=== PATIENT | male | born 1980 | race Caucasian/White ===

== ENCOUNTER 2019-04-15 16:32 | Emergency (ER) | payer OTHER, SELFPAY ==
[2019-04-15 16:33] VITALS: BP 119/81; PULSE 97; RESP 17; TEMP 36.8; O2SAT 98; BMI 25.4
[2019-04-15 16:42] VITALS: BP 147/91; PULSE 82; RESP 16; O2SAT 99
--- NOTE | 2019-04-15 17:13 | ED.VISSUMM ---
- ER Visit Summary Date of Service: 04/15/19 Chief Complaint: Dizziness meaning lightheaded History of Present Illness: The patient is a 38 M status post right knee surgery about [address]Dan Corley from [facility]. Patient states his been doing well he has been down a lot laying and sitting down due to the discomfort. He has had no chest pain. No shortness of breath. No hemoptysis. Really no calf pain or swelling. No prior DVT or PE. He got up today to do physical therapy just felt lightheaded so they sent him in. They told he may need to be checked out for a possible blood clot. Physical Examination: Well-appearing young male. Vital signs are stable afebrile. Pulse ox 99% on room air no signs of hypoxia. H EENT exam normal. Moist wheeze members. Neck nontender no JVD. No lymphadenopathy. Lungs clear to auscultation bilaterally laterally. Heart rate and rhythm no murmur rate about 80. Abdomen soft nontender normal bowel sounds no peritoneal signs. Extremities moves all 4. Neurovascular intact. Both calves are nontender without edema or cords. Is a very well healing incision top of his patella that is dry and clean without signs of infection. There is no redness or warmth. Neurologically is awake alert with no focal motor or sensory deficits. Equal symmetrical technical developer strength. Dorsi plantarflexion intact. Test Results: CBC normal white count of 7. Hemoglobin 15. Chemistries normal. D-dimer was elevated 0.86. For that reason a CT of the chest was done and was read as negative by the radiologist. Reviewed by me. No PE. No dissection. Emergency Department Course and Treatment: Clinically the patient looks well. This is probably from deconditioning. I will obtain screening labs. Repeat exam patient is doing well 1800 and 1910. We went over all his test results. Treatment Plan: Plenty of fluids and rest. Increase activity as tolerated. Disposition: Discharge chest Impression: Acute lightheadedness Status post right knee surgery This note was generated with [employer] dictation software. It may contain incorrect words, spelling, and punctuation that were not noted in review of the chart prior to signing ED Disposition - Plan for ED Patient: Referrals: Samantha Najera MD [Primary Care Provider] -
[2019-04-15 17:29] LABS: Absolute Lymphocyte Count 1.06 X10^3/uL (0.83-4.51); Absolute Neutrophil Count 5.8 X10^3/uL (2.0-7.7); Basophil# 0.01 X10^3/uL; Basophil% 0.1 % (0-1); Eosinophil# 0.03 X10^3/uL; Eosinophils% 0.4 % (0-5); Hematocrit 42.7 % (40-54); Hemoglobin 15.3 g/dL (13.0-16.5); Lymphocyte # 1.06 X10^3/ul (4.0); Lymphocyte % 14.5 % (19-41); Mean Corp Hgb Conc 35.8 g/dL (32-36); Mean Corpuscular Hgb 31.7 pg (27.0-32.0); Mean Corpuscular Volume 88.4 fL (80-94); Mean Platelet Vol. 9.8 fl (6.2-12.0); Monocyte# 0.37 X10^3/uL; Monocyte% 5.1 % (0-10); NRBC Flagged by Analyzer 0 % (0-5); Neutrophil # 5.82 X10^3/uL (2.7-7.7); Neutrophil % 79.5 % (47-70); Platelet Count 242 K/mm3 (150-450); RBC Distribution Width CV 11.4 % (11.6-14.6); RBC Distribution Width SD 36.2 fl (35.1-43.9); Red Blood Count 4.83 M/mm3 (4.6-6.2); White Blood Count 7.3 K/mm3 (4.4-11.0)
[2019-04-15 17:35] LABS: Anion Gap 5 (5-15); BUN 14 mg/dL (7-18); BUN/Creat Ratio 12.8 RATIO (10-20); Calcium,Total 9.1 mg/dL (8.5-10.1); Chloride 106 mmol/L (98-107); Creatinine, Serum 1.09 mg/dL (0.70-1.30); EST Glomerular Filtration Rate 80 mL/min (>60); Est Glom Filt Rate - Afr Amer 97 mL/min (>60); Estimated Creatinine Clearance 99.87 ml/min; Glucose 102 mg/dL (74-106); Potassium 3.7 mmol/L (3.5-5.1); Sodium Level 138 mmol/L (136-145)
[2019-04-15 18:04] LABS: D-Dimer Quantitative (DVT/PE) 0.86 FEU/ug/m (0.27-0.49)
--- NOTE | 2019-04-15 18:07 | CT_ITS ---
STUDY: CTA CHEST REASON FOR EXAM: Male, 38 years old. Dizziness, elevated d-dimer, recent knee surgery RADIATION DOSAGE (If Supplied By Facility): CTDIvol = ( 11.93 ) mGy, DLP = ( 348.96 ) mGycm TECHNIQUE: The examination was performed with the intravenous administration of 100 IV Isovue 370. Post-processing of the angiographic images was performed, with multiplanar reformation and 3D reconstruction. Individualized dose optimization techniques were used for this CT. COMPARISON: None. FINDINGS: Normal enhancement of the main pulmonary artery and right and left pulmonary arteries. Normal enhancement of the bilateral peripheral pulmonary arteries. There is no demonstrated pulmonary embolism. Normal thoracic aorta and visualized great vessels. There is no demonstrated aortic dissection. Normal heart and pericardium. Normal mediastinum. Normal hilar regions. Normal visualized trachea and bronchi. The lungs are well expanded. There is a right upper lobe 7 mm peripheral nodule and a nonspecific 7 mm left lung base peripheral nodule. Normal pleura. Normal chest wall structures. Normal osseous structures. Normal visualized upper abdomen. CT/CTA Chest W/WO Contrast IMPRESSION: No demonstrated pulmonary embolism or arterial dissection. Pulmonary nodules bilaterally. Electronically Signed: Rigo Freedman DO at 19:02 EDT Tel [phone], Service support ,
[2019-04-15] MEDS: 0.9% Normal Saline 1,000 ML 999 ML IV (18:27)
[2019-04-15 18:38] VITALS: BP 117/63; PULSE 59; RESP 14; O2SAT 98
--- NOTE | 2019-04-15 19:15 | ED.DEP ---
ED Disposition - Plan for ED Patient: Disposition: Home or Assisted Living Instructions: DIZZINESS, Unk Cause Referrals: Samantha Najera MD [Primary Care Provider] - 1 Week if not improving Additional Instructions: Fluids and rest. Follow-up with your doctor if not improving or return if worse. Increase activity as tolerated
[2019-04-15 19:19] VITALS: BP 143/81; PULSE 82; RESP 14; O2SAT 98
== END 2019-04-15 19:24 | disposition home or self-care (01) ==
PROVIDERS: Emergency Provider Emergency Medicine; Family Provider Internal Medicine; PCP Internal Medicine
DX: R42 Dizziness and giddiness (principal); Z98.890 Other specified postprocedural states
CPT/HCPCS: 71275; 80048; 85025; 85379; 96360; 99285; J7030; Q9967; A4216

== ENCOUNTER → 2019-07-15 11:08 | Outpatient (CLI) | payer OTHER, SELFPAY ==
[2019-07-15 10:34] VITALS: BMI 25.3
[2019-07-15 12:36] LABS: Absolute Lymphocyte Count 1.06 X10^3/uL (0.83-4.51); Absolute Neutrophil Count 2.9 X10^3/uL (2.0-7.7); Eosinophil# 0.02 X10^3/uL; Eosinophils% 0.5 % (0-5); Hematocrit 44.9 % (40-54); Hemoglobin 15.6 g/dL (13.0-16.5); Lymphocyte # 1.06 X10^3/ul (4.0); Lymphocyte % 24.4 % (19-41); Mean Corp Hgb Conc 34.7 g/dL (32-36); Mean Corpuscular Volume 89.3 fL (80-94); Mean Platelet Vol. 10.6 fl (6.2-12.0); Monocyte# 0.33 X10^3/uL; Monocyte% 7.6 % (0-10); NRBC Flagged by Analyzer 0 % (0-5); Neutrophil # 2.92 X10^3/uL (2.7-7.7); Neutrophil % 67.3 % (47-70); Platelet Count 191 K/mm3 (150-450); RBC Distribution Width CV 12.4 % (11.6-14.6); RBC Distribution Width SD 40.7 fl (35.1-43.9); Red Blood Count 5.03 M/mm3 (4.6-6.2); White Blood Count 4.3 K/mm3 (4.4-11.0)
[2019-07-15 12:49] LABS: ALB/GLOB Ratio 1.4 RATIO (0.9-2.4); AST(SGOT) 14 U/L (15-37); Alanine Aminotransfer ALT/SGPT 29 U/L (16-61); Albumin, Serum 4.1 g/dL (3.2-5.0); Alkaline Phosphatase 57 U/L (45-117); Anion Gap 4 (5-15); BUN 12 mg/dL (7-18); BUN/Creat Ratio 10.6 RATIO (10-20); Chloride 106 mmol/L (98-107); Cholesterol 154 mg/dL (200); Creatinine, Serum 1.13 mg/dL (0.70-1.30); EST Glomerular Filtration Rate 76 mL/min (>60); Est Glom Filt Rate - Afr Amer 92 mL/min (>60); Glucose 112 mg/dL (74-106); High Density Lipoprotein 46 mg/dL; Potassium 4.2 mmol/L (3.5-5.1); Protein, Total 7.1 g/dL (6.4-8.2); Sodium Level 139 mmol/L (136-145); T4 Free Direct 1.05 ng/dL (0.76-1.46); Thyroid Stim Hormone (TSH) 0.73 uIU/mL (0.358-3.74); Triglycerides 58 mg/dL; Very Low Density Lipoprotein 12 mg/dL (5-40)
== END ==
PROVIDERS: Family Provider Internal Medicine; PCP Internal Medicine; Visit Provider Internal Medicine
DX: F32.9 Major depressive disorder, single episode, unspecified (principal); F41.9 Anxiety disorder, unspecified; Z82.49 Family history of ischemic heart disease and other diseases of the circulatory system
CPT/HCPCS: 36415; 80053; 80061; 84439; 84443; 85025

== ENCOUNTER → 2019-07-21 10:56 | Outpatient (CLI) | payer OTHER, SELFPAY ==
[2019-07-15 10:34] VITALS: BMI 25.3
--- NOTE | 2019-07-21 10:58 | EKG12_ITS ---
Test Reason : ROUTINE Blood Pressure : / mmHG Vent. Rate : 061 BPM Atrial Rate : 061 BPM P-R Int : 140 ms QRS Dur : 082 ms QT Int : 370 ms P-R-T Axes : 054 083 068 degrees QTc Int : 372 ms Normal sinus rhythm Normal ECG Confirmed by JOHN CARIAS, CARLA ([id number]), legal editor JAMESON LOAIZA ([id number]) on 07/22/2019 10:45:10 AM Referred By: Marissa Pyle Confirmed By:CARLA LOPEZ MD
== END ==
PROVIDERS: Family Provider Internal Medicine; PCP Internal Medicine; Referring Provider Internal Medicine; Visit Provider Internal Medicine
DX: Z82.49 Family history of ischemic heart disease and other diseases of the circulatory system (principal)
CPT/HCPCS: 93005

== ENCOUNTER 2019-07-21 16:30 | Outpatient (RCR) | payer OTHER, SELFPAY ==
--- NOTE | 2019-04-07 17:06 | HP.PTEVAL_ITS ---
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 Date of Evaluation: 04/07/19 Physical Therapist: Akin Max DPT - Visit Plan Frequency: 2x /Week Duration: 12 weeks Plan: Start with extension ROM, slight flexion, quad sets, +SLR, hip abd. Next week (04/14) progress to bike for ROM (no resistance). Add in ice/vaso as needed. Progress per protocol. - Subjective Findings: Pt. 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 DOS: 03/31/19. Pt. has a history of multiple arthroscopes without lasting relief. 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 Pt. denies N/T in either LE. Pt. reports having increased stiffness and swelling in his knee, expected. Pt. reports higher levels of pain pto 7/10 at times. Pt. is having increased difficulty with sleeping as well. Pt. is hopeful to get back to all recreational activities. - Pain R knee Pain Intensity (Out of 10): 5 Pain Intensity Range: 2, 8 - Objective POSTURE: Pt. has normal posture. Pt. is able to maintain proper NWBing on his RLE with crutches. PALPATION: Pt. has well healing incision, no drainage. Pt. has increased edema as expected with expected warmth. No sings of infection and negative homans sign. NEURO: Normal throughout. ROM: L knee 0-0-137deg. R knee 0-10-80deg. Tight HS and hip flexors. MMT: Pt. is able to demonstrate and quad set and a SLR, but does have ~10-15deg lag. 4/5 hip abd and 4/5 hip extension. GAIT: Pt. ambulates with proper NWBing with crutches. - Goals Goal 1:: Pt. to be I with HEP. Goal Time Frame: 4-6 Weeks Goal 2:: Pt. to have increased R knee ROM to 0-0-120deg Goal Time Frame: 2-4 Weeks Goal 3:: Pt. to have full SLR without quad lag x15 reps. Goal Time Frame: 6-8 Weeks Goal 4:: Pt. to have normal gait pattern without increase in symptoms. Goal Time Frame: 4-6 Weeks Goal 5:: Pt. to to sleep without increase in symptoms. Goal Time Frame: 2-4 Weeks Goal 6:: Pt. to have increased RLE musclulature by 1/2 grade throughout quad, HS, glutes Goal Time Frame: 6-8 Weeks - Rehabilitation Potential Physical Therapy Diagnosis: Pt. 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 Pt. has subsequent hypomobility, weakness, difficulty walking, and increased pain. Pt. would benefit from PT to address above limitations progress back to work activities as tolerated. Rehabilitation Potential: Excellent - Anticipated Interventions Patient/Client Instruction: Educate patient on: Condition, Plan of Care, Risk Factors, Benefits of Fitness Program For the Purpose of:: To improve decision making, To facilitate caregiver knowledge, To improve self management, To prevent re-injury, To improve ability to perform tasks related to life management, To improve tolerance to ADL's Therapeutic Exercise to Include: Strength training, Power training, Endurance training, Balance training, Postural training, Flexibilty training, Gait and locomotor training, Passive ROM, Active ROM, Dynamic Lumbar Stabilization For the Purpose of:: To decrease pain, To increase ROM, To improve nutrient delivery to tissue, To increase oxygenation perfusion, To improve muscle performance and motor function, To improve ability of physical actions for home/community/work/leisure, To improve gait and locomotor functions, To improve health of tissue, To decrease soft tissue restriction, To increase flexibility/ROM, To improve endurance, To improve balance Manual Therapy Techniques to Include: Mobilization, Passive ROM, Soft tissue mobilization For the Purpose of:: To decrease pain, To decrease swelling/inflammation, To increase ROM, To improve nutrient delivery to tissue, To increase oxygenation perfusion, To improve muscle performance and motor function IF ES: Yes Cryotherapy (ice pack, ice massage): Yes Vasopneumatic device: Yes For the Purpose of:: To decrease pain, To decrease swelling/inflammation, To increase ROM Thank you for the opportunity to evaluate your patient. For Medicare and Medicare HMO plans, please review the plan of care and approve it. It will need to be FAXED BACK to us at [phone] for Medicare purposes. For Medicare only, by signing this I certify the plan of care. Please let me know if there are questions or concerns regarding this plan of care. Physician Signature: Date:
== END 2019-07-21 19:00 | disposition home or self-care (01) ==
LOC: PT 16:30
PROVIDERS: Family Provider Internal Medicine; PCP Internal Medicine
DX: M94.261 Chondromalacia, right knee (principal); M93.20 Osteochondritis dissecans of unspecified site
CPT/HCPCS: 97016; 97110; 97161

== ENCOUNTER 2020-02-17 09:00 | Outpatient (RCR) | payer OTHER, SELFPAY ==
--- NOTE | 2020-02-10 09:06 | BH.SGPN.GN ---
Behaviors/Verbalizations/Mental Status: [] Client alert and oriented, casual dress. Eye contact good. Motor activity appropriate. Speech within normal limits. Affect unable to gather due to client wearing a mask for COVID-19 protocol, mood anxious and depressed. Thoughts linear, logical, no signs of hallucinations or delusions. Reviewed client?s symptom tracker, no signs of suicidal ideation, plan, or intent as of today. Client Response/Progress/Benefit: [] Client new to IOP group today. He was receptive to session, attentive during discussion. Client reports feeling anxious, depressed, and overwhelmed today. He discussed various psychosocial stressors leading to IOP treatment which included: his physical health, COVID-19 pandemic, his father?s recent , and pressure to return to work. Client discussed he has never felt anxiety or depression to this severity in the past and fears what it means for his future. Noted feeling alone and disconnected from his family. He was receptive of the support and encouragement from the group. Peers attempted to normalize some of his current sx. Appeared to benefit from support and structure of the group. Will continue IOP tx to promote more consist mood stability, improve daily functioning and ability to manage mental health sx, as well as prevent decompensation. Narrative Note: []
[2020-02-12 14:28] VITALS: BMI 25.0
--- NOTE | 2020-02-17 10:44 | BH.NA ---
Physical Data - Vital Signs Pulse Rate: 78 Blood Pressure: 122/68 - Height/Weight Height: 1.83 m - stated Weight:: 83.915 kg - stated Weight in Pounds: 185.0 lbs Nutritional History - Appetite Nutritional Instructions:: If client shows signs of a swallowing problem, weight change of 10 pounds or more in the last month, or is on a diabetic diet, the physician will review and request a dietitian consult, as appropriate. All unintentional weight loss will be referred to the physician for decision on need for dietitian consult. Describe your appetite:: Fair - Client states appetite is ok, states decreased appetitie on low days Functional Assessment - Sleep Pattern Describe any problems with sleeping: Client states sleep is ok and is getting an average of 7-8 hours per night. - Activities Motor Activity:: Functional Sensory/Communication Assess - Vision Problems Do you have any vision problems?: Glasses - Communication Problems Do you have difficulty understanding what people are saying?: No Medical Problems/History - Family History Family History: Family History (Last Reviewed 02/12/20 @ 14:28 by Terry Simon) Brother Retinoschisis Father Diabetes Heart disease Grandfather Alcoholism Uncle Alcoholism Grandmother Arthritis Uncle Alcoholism Grandmother Breast cancer Stomach cancer Grandfather Colon cancer - Additional History Additional comments:: Client states has a h/o anxiety and depression. Surgical History - Surgical History Have you had any surgeries? If so, list type and date:: Yes - Multiple knee surgeries, last one in March,. Substance Abuse - Substance Abuse Please describe substance abuse in the last 30 days:: Client states drinks beer and winea few times per week. Client states never a smoker but does currently chew tobacco, states had stopped in 2008 and throughout the years but started back up again d/t anxiety. Client states uses marijuana occasionaly but has not used in approximately 1/2yr. Client denies any other past or current substance use. Client reports consumes caffiene, consisting of coffee daily. Mental Status Summary - Mental Status Significant Findings/Observations on Appearance and Mood:: Client is alert and oriented x4. Client is casualy groomed. Client is cooperative with assessment, makes good eye contact during conversation. Client's speech with normal rate and volume, coherent and spontaneous. Client appears mildly depressed and mildly anxious during asseessment. Client appears with appropriate affect but appears to start to get tearful throughout times of assessment. Client makes logical associations, normal processing. Client denies delusions and hallucinations, none evident. Client appears with good insight and judgement. Suicide Assessment - Suicidal Ideation Are you currently or have you been suicidal in the past?: No - Client denies past or current SI/HI. Suicidal Intentional Rating Scale (SIRS): No suicidal thoughts (past or present) Physician Notification: If Active suicidal thoughts/Will not contract for safety is checked, contact physician and document in the Physician Notification section below. Past Psychiatric History - MH Treatment Hx Past Psychiatric Medications:: Client states that he has taken Lexapro in the past, tapered self off about 3-4 weeks ago. Age of first mental health symptoms: Client states was diagnosed with mental health condition at 38yo. Describe (age, circumstance, etc) any past hospitalizations: Client denies any past psychiatric hospitalizations. Current providers for mental health treatment (counselor, psychiatrist, leather case finisher, etc.): Client states that he sees a therapist, Otto López. Fall Risk Assessment - Age Age: Less than 60 - Mental Status Mental Status: Willing & able to ask for assistance when needed - Physical Status Physical Status: No problems - Impairments Impairments: None - Elimination Elimination: Continent AND independent - Gait or Balance Gait or Balance: Walks independently - Hx of Falls History of falls in the past 6 months: No known history - Medications/Substances Psychotropics:: Antidepressants Medications/substances used within the past 24 hours or ordered to administer: 1-2 of the medications/substances listed above - Total Score Total Points:: 1 RN Summary of Impressions - Impressions Recommendations: Include psychiatric and medical issues, treatment planning recommendations, and discharge planning needs. Impressions: Psychiatric Issues: Major depressive disorder recurrent severe without psychosis; obsessive-compulsive disorder (obsessions only); generalized anxiety disorder - Level of Care How do the client's current symptoms and functional deficits support need for this level of care?: Client details onset of current episode, stating that symptoms have been worse over the past 2 weeks. Client states that he had knee surgery March 2020 and was not happy with the results and outcome. Client states stress from having to use crutches at work. Client states all the stress and anxiety from the surgery started to make him depressed and anxious about his health. Client states that he has been working from home during the COVID pandemic and is expected to return to work on March 01, 2020. Client states concern for getting mental health symptoms under control before returning to work and this is causing anxiety. Client states that his father Dec, 2019 and has not been able to cope effectively, stating symptoms of panic attacks, depression and anxiety. Client states just started Prozac last night. Client reports was referred to [facility] IOP program by outpatient therapist and PCP Dr Pyle. IOP will promote gains and prevent further decompensation while providing social support and skills training.
[2020-02-17 11:30] VITALS: BP 122/68; PULSE 78
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
--- NOTE | 2020-02-17 13:28 | BH.DR.ITP ---
Initial Treatment Plan - Patient Information Visit Information: ADMISSION DATE: EXPECTED LOS: 4-6 weeks - Problems/Symptoms Problem #1:: Depression Symptom:: Sadness, low energy, anhedonia, decreased concentration, hopelessness, worthlessness Problem #2:: Anxiety Symptom:: Panic attack, worry, rumination, health worry, obsessions
--- NOTE | 2020-02-17 14:24 | BH.COMM_ITS ---
Communication Note - Communication with Client Communication Note: Met with pt to complete initial paperwork and [place] suicide risk screening. No Significant changes since pre-admission screening. Low risk for suicide. Denies active SI, plan, or intent. Protective factors. Future-oriented. Pt denies any history of suicide attempts or self-harming behaviors. Pt. reported he has never had thoughts of actually killing himself, but he recently had thoughts questioning his existence which was concerning to client.
--- NOTE | 2020-02-18 09:03 | BH.SGPN.GN ---
Behaviors/Verbalizations/Mental Status: []Client alert and oriented, neatly dressed and groomed. Eye contact good. Motor activity restless. Speech within normal limits. Affect unable to gather due to wearing a mask for COVID-19 protocol, mood anxious and depressed. Thoughts linear, logical, no signs of hallucinations or delusions. Reviewed client?s symptom tracker, no risk for suicidal ideation, plan, or intent as of 02/18/20. Client Response/Progress/Benefit: []Client responded well to session, attentive and receptive to positive feedback from peers. Client reports feeling overwhelmed today. Today is client's second day in IOP and he reports it's a lot to take in. Receptive to feedback from peers who helped normalize client's experience. Client unable to identify any positives today aside from coming to IOP. Client shared he has been struggling with his mental health, especially his intrusive thinking, anxiety, and depression. Client reported I'm slipping into depression and it's terrifying. Client stated his is having a hard time with this which makes client ruminate about their relationship. 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 Appeared to benefit from connecting with peers and verbalizing his worries. Will continue IOP tx to prevent decompensation, increase use of healthy coping skills, and learn how to manage intrusive thoughts. Narrative Note: []
--- NOTE | 2020-02-18 11:20 | BH.SGPN.GN ---
Behaviors/Verbalizations/Mental Status: [] Client alert and oriented, casual in appearance. Eye contact good. Motor activity appropriate. Speech within normal limits, quiet. Affect constricted, mood depressed, anxious. Thoughts linear, logical, no signs of hallucinations or delusions. Client Response/Progress/Benefit: [] Pt 2nd day in program and still adjusting to group setting, did well to remain attentive and take notes throughout. Appeared to connect with the discussion reviewing three categories of skills for managing anxiety which included mind-based, body-based, and self-soothing. Pt attentive as fellow participants provided examples in the various categories and did well to identify a skill in each mindfulness category he is willing to practice. Identified skills included: body-based: hiking, Self-soothing as: spending time with his daughter, and mind-based: meditation. Pt seemed to benefit from increased awareness of healthy skills to manage anxiety related symptoms and in identifying skills willing to practice outside treatment environment. Progress noted in increased engagement though continues to appear to struggle with feeling comfortable in the group setting. Client to continue IOP level of care to increase application healthy coping skills, continue to promote anxiety and depression management skills, and prevent decompensation. Narrative Note: []
--- NOTE | 2020-02-18 13:10 | BH.MDN_ITS ---
Multi-Disciplinary Note - Note 45-min Individual Time Started:: 12:16 Date: 02/18/20 Purpose of session/treatment goals addressed:: The purpose of this session was to provide client a safe space to process her current emotions, symptoms, and stressors. Another goal was to normalize client's symptoms by providing psychoeducation on anxiety and intrusive thinking. Other topics included treatment goals. Eye Contact:: Good Appearance:: Neat Speech:: Appropriate Mood:: Anxious, Depressed Affect:: Congruent - tearful throughout session Thoughts:: Racing, No evidence of hallucinations/delusions noted Staff Interventions:: Therapist used open-ended questions and active listening while providing a safe space for client to process and verbalize her emotions, symptoms, and stressors. Therapist provided psychoeducation on anxiety and intrusive thoughts to normalize client's experience and help client learn about effective interventions. Therapist used strengths perspective to empower client on her resilience. Therapist explored client's treatment goals. Therapist gave client a handout on intrusive thinking. Client Response:: Client responded well to session, open to meeting with therapist. Client was tearful and shared that he has not been himself for a while now. Client stated he has been a ?worrier? before and down in the past, but he has never experienced anything like this. Client stated he has had intrusive obsessive thoughts about his health, depression, and overall mental health. Client stated these thoughts began around June 2019. Client shared he suffered a severe panic attack with feelings of derealization which terrified client. Client stated ?it felt like I wasn?t real, nothing I was looking at was real? and this experience led client to have intrusive thoughts about existence and his life. Client became tearful because and frightened that he would have thoughts like this. Client had passive thoughts of and shared ?I don?t want to do that.? Receptive to psychoeducation on intrusive thoughts and recognized that intrusive thoughts do not mean client actually wants to act on those thoughts. Client stated he wants to get back to being himself and ?not worry constantly.? Client reported his mental health has been impacting his marriage which scares client. Receptive to therapist informing client about options to bring in his for psychoeducation on OCD and anxiety. 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 Receptive to working on managing intrusive thoughts and willing to read about it for homework. Risks/Concerns:: Client denies any active suicidal ideations, plan, or intent as of 02/18/20. Client is future oriented and notes protective factors. No history of suicide attempts. Progress Toward Goals/Plan:: Client's first week of IOP, no progress to document. Client endorses a depressed mood, crying spells, hopelessness, intrusive thoughts about his health and worsening mental health symptoms, anxiety, and inability to concentrate. Client reports his symptoms have been worsening over the past year due to multiple stressors including major knee surgery, the loss of his father, and COVID-19. Client responded well to psychoe ducation on intrusive thoughts and appeared relieved that what he is experiencing is treatable. Client receptive to working on managing his intrusive thoughts to reduce overall anxiety. Client to continue IOP to prevent decompensation, reduce anxiety, and help client return to his baseline. Time Stopped:: 12:56
--- NOTE | 2020-02-18 13:44 | BH.MTP ---
[facility] Treatment Plan - Patient Information Program Physician:: Dr. Miranda Shah Primary Therapist:: Debbie Acevedo - Psychiatric Diagnoses Psychiatric Diagnoses:: Major depressive disorder recurrent severe without psychosis F33.2; obsessive-compulsive disorder (obsessions only) F42.2; generalized anxiety disorder Diagnosis Code(s):: F 33.2 - Estimated LOS Estimated LOS (in weeks):: 6 Problem/Goal #1 - Problem/Goal #1 Stated Goal:: Client will decrease depressive symptoms, hopelessness, and crying spells due to major depressive disorder. Description of Barriers: Client reports his mental health symptoms have been impacting his marriage and he is fearful there will be negative consequences if he does not improve. Client has insight to intrusive thoughts, but he does not know how to manage them. Client engages in reassurance seeking behaviors that make intrusive thoughts worse. Client also struggles to accept his emotions and depressive symptoms. Functional Impact: Client is a 39-year-old male with a history of MARK and MDD. Client was referred to [facility] by his outpatient therapist due to worsening depression, intrusive thoughts, health anxiety, and recent stressors impacting mental wellbeing. Client reports his symptoms are impacting his social, familial and work responsibilities. Client currently endorses a depressed mood with lack of motivation, crying spells, anhedonia, feelings of worthlessness, feeling of being a burden, and inability to concentrate. Client shared his depression and intrusive thoughts are consuming my life. Client's intrusive thoughts are centered around his health, worries about becoming suicidal, and existential thoughts. Client has been unable to focus at work and stated it is hard for him to even enjoy playing with his daughter. Client also endorses ruminations, reassurance seeking behaviors, and panic attacks. Client reports multiple contributing stressors including his father dying a month ago, the COVID pandemic, knee surgery, and turning 39. Goal Relevant Strengths/Supports: Client presents as a motivated, kind, and intelligent man who wants to improve his mental health and well-being. Client is active and enjoys exercising and spending time with his daughter. Client is connected with outpatient services. Client has attempted to become familiar with his mental health and has researched about intrusive thoughts which could benefit client. - Objectives Objective #1 Stated Objective: Client will learn and utilize 2-3 healthy coping strategies to better manage depressive symptoms and reduce DSM-5 symptoms for depression. Interventions: Through group and individual sessions, therapist will help client identify triggers and warning signs of depression and emotional dysregulation including emotional, physical, and behavioral changes. Therapist will teach client various coping skills to manage his symptoms. Therapist will use cognitive restructuring techniques and help client gain awareness of negative thoughts that reinforce depressive cycles. Therapist will help client incorporate mindfulness and emotional regulation skills when dealing with difficult situations. Discharge Criteria: Client will have met this goal when he can report learning and using at least 2 coping skills to manage depressive symptoms and her DSM-5 scores for depression have decreased. Target Date: 03/30/20 Review Date: 03/18/20 Status: open Objective #2 Stated Objective: Client will identify at least 2-3 negative self-talk messages used to reinforce negative core beliefs and replace thoughts with positive, realistic messages. Interventions: Therapist will help client identify distorted, negative beliefs about self and replace with more realistic, affirmative messages. Therapist will use CBT to help client increase insight to the connection between thoughts, emotions, and behaviors. Therapist will also use dialectical thinking to help client combat all or nothing expectations. Therapist will encourage client to practice thought challenging. Discharge Criteria: Client will have achieved this goal when can verbalize at least 2 negative self-talk messages and effectively replace those thoughts with affirmative messages. Target Date: 03/30/20 Review Date: 03/18/20 Status: open Problem/Goal #2 - Problem/Goal #2 Stated Goal:: Client will reduce overall frequency, intensity, and duration of anxiety and intrusive thoughts so that daily functioning is not impaired. Description of Barriers: Client reports his mental health symptoms have been impacting his marriage and he is fearful there will be negative consequences if he does not improve. Client has insight to intrusive thoughts, but he does not know how to manage them. Client engages in reassurance seeking behaviors that make intrusive thougths worse. Client also struggles to accept his emotions and depressive symptoms. Functional Impact: Client is a 39-year-old male with a history of MARK and MDD. Client was referred to [facility] by his outpatient therapist due to worsening depression, intrusive thoughts, health anxiety, and recent stressors impacting mental wellbeing. Client reports his symptoms are impacting his social, familial and work responsibilities. Client currently endorses a depressed mood with lack of motivation, crying spells, anhedonia, feelings of worthlessness, feeling of being a burden, and inability to concentrate. Client shared his depression and intrusive thoughts are consuming my life. Client's intrusive thoughts are centered around his health, worries about becoming suicidal, and existential thoughts. Client has been unable to focus at work and stated it is hard for him to even enjoy playing with his daughter. Client also endorses ruminations, reassurance seeking behaviors, and panic attacks. Client reports multiple contributing stressors including his father dying a month ago, the COVID pandemic, knee surgery, and turning 39. Goal Relevant Strengths/Supports: Client presents as a motivated, kind, and intelligent man who wants to improve his mental health and well-being. Client is active and enjoys exercising and spending time with his daughter. Client is connected with outpatient services. Client has attempted to become familiar with his mental health and has researched about intrusive thoughts which could benefit client. - Objectives Objective #1 Stated Objective: Client will identify 2-3 intrusive/ruminating thoughts and learn 2-3 strategies to overcome, replace, or reduce the value of those thoughts. Interventions: Therapist will help client increase awareness of cognitive distortions, false comfort, and myths about intrusive thoughts. Therapist will encourage client to focus on stressors in his control and teach client distress tolerance techniques. Therapist will utilize distractions, mindfulness, and CBT-based strategies to help client learn how to more effectively manage and cope with his intrusive thoughts. Therapist will use a workbook to give client homework and exercises to practice. Discharge Criteria: Client will have met this goal when can report least 2 ways to cope with intrusive thoughts that exacerbate anxiety. Target Date: 03/30/20 Review Date: 03/18/20 Status: open Objective #2 Stated Objective: Client will identify 2-3 anxiety triggers and 2 coping skills to use when feeling anxious to manage anxiety as shown by preventing decompensation via maintaining current DSM-5 scores for anxiety. Interventions: Through group and individual sessions, client will gain awareness of his anxiety triggers and learn numerous techniques to manage anxiety symptoms. Therapist will mindfulness and other calming techniques to manage symptoms and increase distress tolerance skills. Discharge Criteria: Client will have met this goal if client can prevent decompensation as evidenced by stability in DSM-5 scores and when he can identify at least 2 triggers and 2 ways to cope with anxiety. Target Date: 03/30/20 Review Date: 03/18/20 Status: open
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
--- NOTE | 2020-02-19 09:10 | BH.SGPN.GN ---
Behaviors/Verbalizations/Mental Status: [] Eye contact is good. Motor activity is appropriate. Appearance is casual. Speech is Appropriate. Mood is depressed. Affect is flat. Thoughts are linear and logical. No evidence of psychosis. Reviewed daily check in sheet and no reports of suicidal ideations or intent. Client Response/Progress/Benefit: [] Pt participated in group discussion on anger, fear, and healthy ways to cope with these emotions. Emotion for today is optimistic. Shared with the group that this is his 3rd day here and is benefiting from support and education. States that last night was normal and a good night with his symptoms. Recieved a call from his friends who are currently on a trip that he had to cancel due to his mental health. This was upsetting to him and made him focus on the impact of his intrusive thoughts. Progress noted per pt report. Benefited from group support, encouragement, and feedback. Will continue in IOP to improve daily functioning, prevent decompensation, and develop skills to better manage intrusive thoughts. Narrative Note: []
--- NOTE | 2020-02-19 10:10 | BH.SGPN.GN ---
Behaviors/Verbalizations/Mental Status: []Client alert and oriented, casually dressed and groomed. Eye contact good. Motor activity appropriate. Speech within normal limits, quiet. Affect constricted, mood anxious and depressed. Thoughts linear, logical, no signs of hallucinations or delusions. Client Response/Progress/Benefit: []Pt appearing anxious throughout, however did well to remain attentive as well as engaged in discussion and activity. He actively took notes and nodding throughout discussion. Client helped group identify barriers that impact one?s ability to communicate when emotions are high. These barriers included; shutting down, lack of self-care, irritability, fear of reactions, and distorted thinking patterns. Client reported not understanding his own emotions can keep him from communicating when he feels strong emotions. Client participated in the challenge activity and did well to step outside his comfort zone and take an active participant role despite reports of feeling anxious. Client appeared to benefit from increasing awareness of how emotions can impact communication and practicing in the moment coping skills. Progress noted in pt increase in engagement throughout. Client will continue IOP tx to further decrease depression and anxiety, improve coping skill application, and improve daily functioning. Narrative Note: []
--- NOTE | 2020-02-19 11:10 | BH.SGPN.GN ---
Behaviors/Verbalizations/Mental Status: []Client alert and oriented, neatly dressed and groomed. Eye contact good. Motor activity appropriate. Speech within normal limits. Affect unable to gather due to wearing a mask for COVID-19 protocol, mood anxious/dysthymic. Thoughts linear, logical, no signs of hallucinations or delusions. Client Response/Progress/Benefit: []Client engaged in session AEB client listening attentively to peers and providing insight to discussion. Attentive during psychoeducation on 4 zones of regulation. Client able to identify feelings and behaviors for each zone. Group identified coping skills one can use to support self in each zone which included: walking, mindfulness, deep breathing, music, talking to supports, and opposite action. Client stated belief that he is in a mixture of zones today. Client stated he feels ?like I?m in the blue and yellow zones.? Client feels this way because he reports being anxious, but also hopeless. Client reported he is anxious because he has this hopeless feeling. Client reports he can benefit from going to the gym after group and from practicing accepting his emotions rather than judging them or fearing them. Benefited from increased education on zones of regulation or stages of alertness for emotions and healthy coping skills to use for each zone. Will continue IOP tx to prevent decompensation of anxiety, learn to manage intrusive thinking, and improve daily functioning. Narrative Note: []
--- NOTE | 2020-02-22 09:05 | BH.SGPN.GN ---
Behaviors/Verbalizations/Mental Status: [] Client alert and oriented, casual dress. Eye contact fair to good. Motor activity appropriate. Speech within normal limits, quiet. Affect unable to gather due to client wearing a mask for COVID-19 protocol, mood depressed and anxious. Thoughts linear, logical, no signs of hallucinations or delusions. Reviewed client?s symptom tracker, no signs of suicidal ideation, plan, or intent as of today. Client Response/Progress/Benefit: []Pt receptive of session, engaged throughout. Reports feeling worried today as he is still struggling with intrusive thoughts related to his mental health and fears that his symptoms won?t improve. Expressed that at times throughout the weekend these thoughts kept him from being truly present and engaged with his family. Pt noted feeling frustrated as he had not previously struggled to do so and does not want it to feel like he is pretending. Reports using positive self-talk and reminding himself to focus on enjoying the moment. Pt able to identify current mental health wins which included spending one on one time getting ice cream with his daughter, as well as making plans to hike this afternoon with his . Pt appeared to benefit from support and structure of the group, as well as identifying small areas of progress he is making. Will continue IOP tx to promote more consistent mood stability and anxiety management, improve daily functioning, and prevent decompensation. Narrative Note: []
--- NOTE | 2020-02-22 11:16 | BH.SGPN.GN ---
Behaviors/Verbalizations/Mental Status: []Client alert and oriented, casually dressed and groomed. Eye contact fair. Motor activity appropriate. Speech within normal limits. Affect unable to gather due to client wearing a mask for COVID-19 protocol, mood anxious. Thoughts linear, logical, no signs of hallucinations or delusions. Client Response/Progress/Benefit: []Client engaged participant as evidenced by client taking notes and listening attentively to peers. Client participated in the discussion of how each resiliency component can help increase personal resiliency. Client identified resiliency traits he currently possesses and then identified what trait he would like to improve. Client reports belief he has been using the resiliency traits of accepting that change is a part of living and taking decisive action. Client shared he is not always great with acceptance, but he is working on it. Client reported he wants to improve on the resiliency trait of maintaining a hopeful outlook. Client shared he plans to do this by writing out one positive a day to help client focus on the mental health wins. Client appeared to benefit from increasing insight to ways in which client can improve resilience to adversity and daily stressors. Client to continue IOP tx to reduce frequency of intrusive thoughts while decreasing the intensity of anxiety. Narrative Note: []
--- NOTE | 2020-02-22 14:53 | BH.MDN_ITS ---
Multi-Disciplinary Note - Note 45-min Individual Time Started:: 12:13 Date: 02/22/20 Purpose of session/treatment goals addressed:: The purpose of this session was to address client's current symptoms, stressors, and anxious thought patterns. Another goal was to review homework and begin to discuss chapter 3 in the overcoming intrusive thoughts workbook. Eye Contact:: Good Motor Activity:: Appropriate Appearance:: Neat Speech:: Appropriate Mood:: Anxious Affect:: Congruent - tearful Thoughts:: Racing, Circular, No evidence of hallucinations/delusions noted Staff Interventions:: Therapist used open-ended questions and active listening while providing a safe space for client to process and verbalize his emotions, symptoms, and stressors. Therapist provided further psychoeducation on intrusive thinking and reviewed client's homework. Therapist helped client create self- talk statements to manage intrusive thoughts in the moment. Therapist gave client chapter 3 to read for homework. Client Response:: Client responded well to session, open to meeting with therapist. Client and therapist discussed the chapter client read for homework about intrusive thoughts. Client made several connections to the chapter and stated that he could really relate to the intrusive thoughts and worries about becoming depressed. Client shared I get this thought of what if I get super depressed and hopeless and then suicidal. Client stated this thought is very disturbing to him and it consumes client. With further exploration, client recognized that he has unrealistic expectations for his mood and progress. If client expects himself to never feel depressed or sad again, then it will reinforce his anxiety. Client receptive to reading and discussing the myths about thoughts. Client connected with the myths of thoughts are in our control and thoughts indicate one's character. Client recognized that his anxiety and depression worsens when he loses control. Client created self-talk statements to read when he becomes anxious and has intrusive thoughts. Client will read these throughout the day when he needs them. Client will finish chapter 3 for homework. Risks/Concerns:: Client denies any active suicidal ideations, plan, or intent as of 02/22/20. Client has intrusive thoughts and fears about being hopeless and becoming suicidal, but he does not actually want to or hurt himself. Multiple protective factors. Progress Toward Goals/Plan:: Client's second week of IOP, no progress to document, still getting used to group. Client completed homework and has good insight. Client endorses a depressed mood, crying spells, hopelessness, intrusive thoughts about his health and worsening mental health symptoms, anxiety, and inability to concentrate. Client reports fear that he will not get better which will impact his job and marriage. Client responded well to psychoeducation on intrusive thoughts and homework. Client receptive to working on managing his intrusive thoughts to reduce overall anxiety. Client to continue IOP to prevent decompensation, reduce anxiety, and help client return to his baseline. Time Stopped:: 13:00
--- NOTE | 2020-02-23 09:00 | BH.SGPN.GN ---
Behaviors/Verbalizations/Mental Status: []Client alert and oriented, neatly dressed and groomed. Eye contact good. Motor activity appropriate. Speech rapid. Affect congruent- tearful, mood anxious/depressed. Thoughts linear, logical, no signs of hallucinations or delusions. Reviewed client?s symptom tracker, no risk for suicidal ideation, plan, or intent as of 02/23/20. Client Response/Progress/Benefit: []Client responded well to session, receptive to emotional support and feedback from peers. Client was tearful during his check-in and reports feeling unsettled today. Client reported he is constantly fearful about being depressed which then makes client feel depressed. Client reports it's like a vicious cycle and client does not know what to do. Group gave ideas to client on ways to manage intrusive thoughts such as acceptance, thought reframing, and distractions. Client unable to identify any positives today, but recognized it is progress that he continues to come back to IOP. Appeared to benefit from gaining support and feedback from peers. Will continue IOP tx to prevent decompensation, increase daily functioning, and learn how to better manage intrusive thoughts. Narrative Note: []
--- NOTE | 2020-02-23 11:16 | BH.SGPN.GN ---
Behaviors/Verbalizations/Mental Status: []Client alert and oriented, casually dressed and groomed. Eye contact good. Motor activity appropriate. Speech within normal limits, quiet. Affect constricted, though difficult to assess as pt wearing a mask due to COVID-19 hospital protocol, mood depressed and anxious. Thoughts appearing ruminative in nature, logical, no signs of hallucinations or delusions. Client Response/Progress/Benefit: [] Client a mostly passive participant AEB contributing limited input to discussion, though remaining attentive and taking notes throughout. Client actively listening group discussion about the different types of support and benefits different support can provide. Client completed worksheet in which he identified areas in which he would like to increase social support. Identified the area of professional mental health support by challenging himself to reach out to reach out more to his individual therapist and fellow group participants. Client shared this will help improve his ability to move forward with improving his mental health sx management. Client seemed to benefit from identifying a type of support he would like to improve upon and brainstorming small steps to take in order to successfully do so. Progress noted as shown by client's improved insight regarding barriers impacting overall progress. Client to continue IOP tx to increase anxiety management, improve healthy coping skills, and increase mood stability. Narrative Note: []
--- NOTE | 2020-02-24 09:31 | BH.PSA ---
Development & Family of Origin - Family History Family History: Family History (Last Reviewed 02/12/20 @ 14:28 by Terry Simon) Brother Retinoschisis Father Diabetes Heart disease Grandfather Alcoholism Uncle Alcoholism Grandmother Arthritis Uncle Alcoholism Grandmother Breast cancer Stomach cancer Grandfather Colon cancer
== END 2020-02-23 23:59 ==
LOC: BHIOP 09:00
PROVIDERS: PCP Internal Medicine; Referring Provider Psychiatry & Neurology Psychiatry; Visit Provider Psychiatry & Neurology Psychiatry
DX: F33.2 Major depressive disorder, recurrent severe without psychotic features (principal); F41.1 Generalized anxiety disorder; F42.9 Obsessive-compulsive disorder, unspecified; F17.220 Nicotine dependence, chewing tobacco, uncomplicated
CPT/HCPCS: H0035; 90834; 90853

== ENCOUNTER 2020-02-24 09:00 | Outpatient (RCR) | payer OTHER, SELFPAY ==
[2020-02-12 14:28] VITALS: BMI 25.0
[2020-02-24 00:39] VITALS: BP 122/68; PULSE 78
--- NOTE | 2020-02-24 10:22 | BH.SGPN.GN ---
Behaviors/Verbalizations/Mental Status: []Client alert and oriented, casual dress, hygiene tended to. Eye contact good. Motor activity appropriate. Speech within normal limits. Affect unable to gather due to wearing a mask for COVID-19 protocol, mood anxious. Thoughts linear, logical, no signs of hallucinations or delusions. Client Response/Progress/Benefit: []Client responded well to session, attentive and occasionally contributing to discussion. Client worked cooperatively with the group to identify factors that contributed to how we define ourselves which included: upbringing, societal expectations, our abilities, accomplishments, failures, education, and how others view us. Client reported he has experienced the impacts of mental health stigma from others and he has personal feed into stigma. Client reported he often judges himself for his mental health which leads to guilt and shame. Client worked with group to identify that stigma can keep people from: connecting with others, being open with others, going after a job or goals, and asking for help. Client stated his personal stigma has kept client from taking more time off of work. Client seemed to benefit from increased awareness of how mental health stigma can impact progress. Client to continue IOP tx further decrease anxiety symptoms, improve daily functioning, and increase use of healthy coping skills. Narrative Note: []
--- NOTE | 2020-02-24 13:02 | PCM.BH.PN_ITS ---
Progress Note Progress Note: History of Present Illness/Interim History: [] Patient is a 39-year-old male with a history of anxiety, obsessions and health anxiety who is seen in follow-up at the [facility] behavioral health IOP program. I last saw the patient 1 week ago. At that time I prescribed Remeron for him. He is tolerating the Remeron well at bedtime. His sleep remains good and he is getting about 8 hours a night. His mood is improved in the past week although he is still somewhat down he is less down than he was. He still has again crippling anxiety but he feels it may be slightly better. He continues to obsess over feeling anxious and obsesses over possibly getting worse. He denies any suicidal ideation or passive thoughts of . He denies any homicidal ideation, hallucinations delusions or other symptoms. Current Psychiatric Medications: [] Prozac 10 mg p.o. daily (x1 week); Remeron 15 mg p.o. nightly (x1 week) Mental Status Examination: [] Patient is a 39-year-old male who is seen wearing a mask due to the pandemic. He appears normal for stated age and is casually dressed and groomed with good hygiene. He is cooperative during the interview and has no psychomotor agitation or retardation. He has good eye contact and speech is normal rate and rhythm and fluent with no pressure. Mood is depressed and affect is constricted. Patient was not tearful during the interview. Thought processes or are organized and goal-directed. Thought content: Patient continues to obsess over being nervous and obsesses over any symptom that he discusses. No evidence of suicidal or homicidal ideation. No evidence of hallucinations or delusions. Judgment is intact. Insight: Some present. Impulsivity: Low. Diagnoses: [] [place] I: [] Major depressive disorder, recurrent, severe without psychosis; obsessive-compulsive disorder (obsessions only); generalized anxiety disorder [place] II: [] Deferred [place] III: [] History of knee surgery [place] IV:[]] Primary support, work and health issues Plan: [] The patient will continue the IOP program at [facility] as the support, structure, education, individual and group therapy will hopefully prevent worsening of the patient's symptoms which might require hospitalization. He felt safe during the interview and if at any time he does not feel safe he will let us know or go to the emergency room. The risk, options, and possible complications of the medication were discussed with the patient and he understands and accepts these. The patient will continue the Remeron 15 mg p.o. nightly. He will increase his Prozac to 20 mg p.o. daily. A prescription was sent in for the Remeron 30 days with a refill and the Prozac prescription was sent in for 20 mg, #30, 0 refills. I will see the patient in 1 week in follow-up.
--- NOTE | 2020-02-29 09:05 | BH.SGPN.GN ---
Behaviors/Verbalizations/Mental Status: [] Eye contact is good. Motor activity is appropriate. Appearance is casual. Speech is Appropriate. Mood is anxious. Affect is congruent. Thoughts are linear and logical. No evidence of psychosis. Reviewed daily check in sheet and no reports of suicidal ideations or intent. Client Response/Progress/Benefit: [] Pt participated at times during the group discussions. Daily symptom tracker notes 3/5 for anxiety and 1/5 for agitation and hopelessness. Emotion for today is calm and apprehensive. Shared that overall his weekend was positive. Notes significant anxiety and intrusive thoughts Saturday. He began to focus on why he was feeling this way. He was proud that he did not let this impact the rest of the day. Utilized skills such as acceptance and affirmations to help minimize impact of intrusive thoughts and emotions. Progress noted per pt report. Anxiety about returning to in-person work tomorrow as he has been working from home since October due to COVID. Group normalized this anxiety. Benefited from group support, encouragement, and feedback. Will continue in IOP to prevent decompensation, improve functioning, and develop coping skills for intrusive thoughts. Narrative Note: []
--- NOTE | 2020-02-29 11:15 | BH.SGPN.GN ---
Behaviors/Verbalizations/Mental Status: []Client alert and oriented, casually dressed, hygiene appeared to be tended to. Eye contact good. Motor activity appropriate. Speech within normal limits. Affect unable to gather due to wearing a mask for COVID-19 protocol, mood anxious. Thoughts linear, logical, no signs of hallucinations or delusions Client Response/Progress/Benefit: []Client responded well to session, attentive and mostly passive. Group discussed the negative consequences of not acknowledging one?s strengths. Connected with the benefits of recognizing personal strengths on improving mental health which included: increased self-confidence, increased willingness to try new things, and better management of symptoms. Client able to identify personal strengths he possesses which includes: artistic ability, leadership, wisdom, creativity, and humor. Client reported that his humor can help client overcome some of his mental health symptoms and lessen the value of his intrusive thoughts. Group discussed strategies to help them acknowledge strengths more often. Appeared to benefit from recognizing personal strengths and identifying strategies to increase recognition of strengths. Will continue IOP tx to prevent decompensation, improve ability to cope with intrusive symptoms, and increase use of healthy coping skills. Narrative Note: []
--- NOTE | 2020-03-02 09:03 | BH.SGPN.GN ---
Behaviors/Verbalizations/Mental Status: []Client alert and oriented, casual dress, hygiene tended to. Eye contact good. Motor activity appropriate. Speech within normal limits. Affect unable to gather due to wearing a mask for COVID protocol, mood anxious and depressed. Thoughts linear, logical, no signs of hallucinations or delusions. Reviewed client?s symptom tracker, no signs of suicidal ideation, plan, or intent as of today. Client Response/Progress/Benefit: []Client responded well to session, receptive to feedback from peers. Client reports feeling very anxious today. Client stated he feels frustrated and exhausted because I just keep going through the cycle. Client shared he went back to work yesterday and it went well, but client became depressed after his therapy session in the evening. Client stated when he feels any sadness or depressed emotions it really kills my spirits because client just wants to get better. Client receptive to supportive feedback from peers and encouragement. The group helped client recognize that progress takes time and encouraged client to practice self-compassion. Client shared he has been trying to practice acceptance, but it is hard. Appeared to benefit from receiving support from peers and reframing distortions in the moment. Will continue IOP tx to prevent decompensation of anxiety, improve mood stability, and improve daily functioning. Narrative Note: []
--- NOTE | 2020-03-02 11:55 | PCM.BH.PN_ITS ---
Progress Note Progress Note: History of Present Illness/Interim History: [] Patient is a 39-year-old male who is seen in follow-up at the [facility] behavioral health IOP program. I last saw the patient 1 week ago. The patient states I am struggling today. He does says he was very depressed last night following a an appointment with his counselor in the evening. He admits that this therapy may have somewhat brought up issues and triggered him to feel more depressed and then become super anxious about getting worse. He had his first day back in the office yesterday and he feels that work went well for him. He occasionally still has the hopeless feeling in his gut. He is tolerating his medication well but remains significantly depressed and anxious. He still has intrusive thoughts where he obsesses over the fact that he is depressed and he might get worse and might never be normal again. Current Psychiatric Medications: [] Prozac 20 mg p.o. daily (increased 1 week ago).; Remeron 15 mg p.o. nightly (x2 weeks) Mental Status Examination: [] Patient is seen wearing a mask due to the p andemic. He is casually dressed and groomed with good hygiene and appears normal for stated age. He is cooperative during the interview and has no psychomotor agitation or retardation. His eye contact is good and his speech is normal rate and rhythm and fluent with no pressure. Mood is depressed and anxious and affect is constricted. Thought processes are organized and goal- directed. Thought content: Patient continues to obsess over being nervous and depressed. No evidence of suicidal or homicidal ideation. He states I want to live. No evidence of hallucinations or delusions. Judgment is intact. Insight: Improving. Impulsivity: Low. Diagnoses: [] [place] I: [] Major depressive disorder, recurrent, severe without psychosis; obsessive-compulsive disorder (obsessions only); generalized anxiety disorder [place] II: [] Deferred [place] III: [] History of knee surgery impacting ability to exercise [place] IV:[]] Primary support, work and health issues Plan: []. The patient will continue the IOP program at [facility] as the support, structure, education, individual and group therapy will hopefully prevent worsening of the patient's symptoms which might require hospitalization. He felt safe during the interview and if at any time he does not feel safe he will let us know or go to the emergency room. The risk, options, possible side effects and complications of the medication were discussed with the patient and he understands and accepts these. He agrees to continue his Prozac at 20 mg p.o. daily. He agrees to increase his Remeron to 30 mg p.o. daily at at bedtime. I will see the patient in 1 week. A prescription was sent in for 30 mg of Remeron, #30, 0 refills. He will continue to follow-up with outpatient providers.
--- NOTE | 2020-03-02 15:25 | BH.MDN_ITS ---
Multi-Disciplinary Note - Note 45-min Individual Time Started:: 10:48 Date: 03/02/20 Purpose of session/treatment goals addressed:: The purpose of this session was to address client's current symptoms, stressors, and anxious thought patterns. Another goal was to review homework (chapter 3) and to teach client about cognitive distortions. Eye Contact:: Good Motor Activity:: Restless Appearance:: Neat Speech:: Appropriate Mood:: Anxious, Dysthymic Affect:: Other - unable to gather due to client wearing a mask. Thoughts:: Circular, No evidence of hallucinations/delusions noted Staff Interventions:: Therapist used open-ended questions and active listening while providing a safe space for client to process and verbalize his emotions, symptoms, and stressors. Therapist reviewed client's homework and discussed it with client. Therapist provided psychoeducation on the different types of cognitive distortions and went through all of them with client. Therapist helped client differentiate between intrusive thoughts and cognitive distortions. Therapist assisted client in recognizing when to challenge a distortion versus when to accept and practice ?thoughts are thoughts? with an intrusive thought. Therapist gave client homework to challenge two labeling thoughts before next session. Client Response:: Client responded well to session, open to meeting with therapist. Client asked this therapist to call client?s outpatient therapist this week for continuity of care. Client receptive to the idea of seeking ERP therapy in the future, should his intrusive thoughts continue to impair functioning. Client completed the homework on the myths about thoughts. Client shared that he connected with this chapter in the book, especially the myths that thinking about something makes it more likely or less likely to happen. Andrew munoz stated he continues to struggle with accepting his intrusive thoughts and practicing distress tolerance with them. Client shared he feels defeated at times and was triggered last night after a therapy session with his outpatient therapist. Client stated he had mentioned something about depression to his therapist and then had the intrusive thought of ?I?m just a depressed person? for the rest of the night. Progress noted as client is less anxious that previous sessions after having a night of ruminations. Client receptive to learning about cognitive distortions and how they differ from intrusive thoughts. Client read through and discussed the different distortions with therapist. Client connected most with: labeling, shoulds, all or nothing thinking, overgeneralizing, jumping to conclusions, mental filter, and magnification. Client shared with therapist that he has a long-standing history of negative self-talk. 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 Receptive to emotional support and thought challenging with therapist. Client learned when to use thought challenging versus when to use acceptance. Client receptive to practicing thought challenging on two of his labeling thoughts for homework. Risks/Concerns:: Client denies any suicidal ideations, plan, or intent as of 03/02/20. Progress Toward Goals/Plan:: Client is making progress towards treatment goals AEB less crying in group and individual sessions and increased insight to how to manage intrusive thoughts. Client went back to work this week part-time and he reported it went well. Client continues to struggle with practicing acceptance and seeks reassurance. Client endorses a depressed mood, crying spells, hopelessness, intrusive thoughts about worsening mental health symptoms, anxiety, and inability to concentrate. Client endorses numerous negative core beliefs of self as well. Client receptive to homework. Client to continue IOP to prevent decompensation, reduce anxiety, and help client return to his baseline. Time Stopped:: 11:37
--- NOTE | 2020-03-03 15:13 | BH.COMM ---
Communication Note - Communication with Client Communication Note: Therapist attempted to call client's outpatient therapist. Left a message.
--- NOTE | 2020-03-04 09:00 | BH.SGPN.GN ---
Behaviors/Verbalizations/Mental Status: []Client alert and oriented, neatly dressed and groomed. Eye contact good. Motor activity appropriate. Speech within normal limits. Affect unable to gather due to wearing a mask for COVID-19 protocol, mood agitated and dysthymic. Thoughts linear, logical, no signs of hallucinations or delusions. Reviewed client?s symptom tracker, no risk for suicidal ideation, plan, or intent as of 03/04/20. Client Response/Progress/Benefit: []Client responded well to session, receptive to feedback and attentive. Client reports feeling agitated this morning. Client shared he is currently feeling worried about feeling weird on a med which triggered intrusive, anxious thoughts. Client stated he has been ruminating instead of practicing acceptance and shared it's just so hard. 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 Client reported some positives today which included having a good experience so far returning to work and it being easier to talk about his mental health symptoms. Client appeared to benefit from using in the moment cognitive restructuring and gaining feedback. Will continue IOP tx as client continues to struggle with managing intrusive thoughts that reinforce OCD and anxiety. Narrative Note: []
--- NOTE | 2020-03-04 10:03 | BH.SGPN.GN ---
Behaviors/Verbalizations/Mental Status: []Client alert and oriented, casual dress, hygiene tended to. Eye contact fair. Motor activity appropriate. Speech within normal limits. Affect could not be assessed due to pt wearing a face mask as precaution against coronavirus. mood anxious and depressed. Thoughts linear, logical, no signs of hallucinations or delusions. Client Response/Progress/Benefit: []Pt passive participant AEB pt not providing input during discussion however appeared to listen attentively to peers and taking notes throughout. Group identified boundaries can impact the following: how much someone takes advantage of you, either bring people closer or push people away, keep us safe, reduce the risk of peer pressure, impact positive or negative self-worth. Listened attentively to group discussion about different types of boundaries. Pt seemed to benefit from increased awareness of how poor boundaries can negatively impact mental health. Progress could be hindered by pt?s continued passive participation during group sessions. Will continue IOP tx to decrease anxious thoughts, increase Improve daily functioning and prevent decompensation. Narrative Note: []
--- NOTE | 2020-03-04 11:05 | BH.SGPN.GN ---
Behaviors/Verbalizations/Mental Status: [] Client alert and oriented, casually dressed. Eye contact fair. Motor activity appropriate. Speech within normal limits. Affect constricted, mood anxious and depressed. Thoughts linear, logical, no signs of hallucinations or delusions. Client Response/Progress/Benefit: [] Client responded well to session, contributing limited verbal input to discussion though was able to make connections during activity as well as taking notes throughout. Client was additionally attentive during psychoeducation on the boundary setting styles and provided personal insights on areas in which his own boundaries tend to struggle. Shared belief he uses both healthy and porous boundary setting styles. Client stated he can maintain healthy boundaries most of the time but finds himself struggling with oversharing to his supports about his mental and physical health anxieties. Expressed this has resulted in feeling he is overwhelming or burning out others. Reported wanting to work on challenging himself to seek less reassurance when tempted to do so. Progress noted in client?s improved ability to engage in the group, however continues to struggle with emotion regulation and intrusive thoughts impacting areas of progress. Will continue IOP tx to promote use of healthy coping skills, increase mood stability, and improve functioning. Narrative Note: []
--- NOTE | 2020-03-07 09:00 | BH.SGPN.GN ---
Behaviors/Verbalizations/Mental Status: []Client alert and oriented, casually dressed and groomed. Eye contact fair. Motor activity appropriate. Speech WNL. Affect unable to gather due to wearing a mask for COVID protocol. Mood Anxious and dysthymic. Thoughts linear, no signs of hallucinations or delusions. Reviewed client's daily symptom tracker, no risk noted for suicidal ideations or intent. Client Response/Progress/Benefit: []Client responded somewhat well to session, appeared disengaged at times due to rumination. Client reports feeling agitated today and client stated this feeling is really wearing on me. Client shared his weekend started out good, but yesterday client felt depressed which triggered an anxious maintenance cycle. Client's OCD traits cause client to obsessively think about his mood and symptoms, which only reinforces them. Client reported he has been trying to practice acceptance but that only helps to a certain degree. The group offered client support and helped reframe self-deprecating statements. Appeared to benefit from challenging negative thinking in the moment. Will continue IOP tx to prevent decompensation of OCD, improve distress tolerance, and reduce intensity of depression. Narrative Note: []
--- NOTE | 2020-03-07 10:12 | BH.SGPN.GN ---
Behaviors/Verbalizations/Mental Status: []Client alert and oriented, casually dressed. Eye contact fair. Motor activity appropriate. Speech within normal limits. Affect could not be assessed due to pt wearing a mask as a precaution during the Covid-19 pandemic. Mood depressed and anxious. Thoughts linear, logical, no signs of hallucinations or delusions. Client Response/Progress/Benefit: []Pt receptive to session, listening attentively to others and providing input when elicited by therapist. Appeared to listen as the group brainstormed the positive and negative aspects of stress on physical and mental health. Group worked together to define stress and provided input during discussion about eustress vs distress. Client identified his stressors include: mental health issues, difficulty concentrating at work, marriage worries, pain after knee surgery, and intrusive thoughts. Client states when he is overwhelmed with stress he experiences heightened anxiety and fear. Seemed to benefit from increased awareness of his current stressors and impact of too much stress on the mind and body. Recommended to continue IOP tx to increase healthy skill application, increase acceptance of anxious thoughts, and prevent decompensation. Narrative Note: []
--- NOTE | 2020-03-07 11:21 | BH.SGPN.GN ---
Behaviors/Verbalizations/Mental Status: [] Client alert and oriented, casually dressed and groomed. Eye contact good. Motor activity appropriate. Speech within normal limits. Affect unable to gather due to wearing a mask for COVID-19 protocol, mood depressed, anxious. Thoughts linear, logical, no signs of hallucinations or delusions. Client Response/Progress/Benefit: []Pt engaged in session as evidenced by listening attentively to others and taking notes. He provided some input throughout, though remaining mostly passive. Pt reported when he does not manage stress well he becomes more anxious and experiences increased intrusive thoughts as a result. Pt attentive during discussion about the 4 A's and was able to connect back to his own life. Pt reports wanting to work on improving his ability to accept his intrusive thought patterns rather than fight them. Noted ?I know the only way out is through? but shared continuing to become frustrated with the process. Pt seemed to benefit from increased awareness of the impact of stress on mental health and increasing repertoire of stress management strategies. Progress continues to be impacted by pt?s ongoing use of reassurance seeking, though appears to be improving overall levels of insight. Will continue IOP tx to promote use of healthy coping skills, continue to reduce intrusive thinking which impacts anxiety and depression levels, and improve mood stability. Narrative Note: []
--- NOTE | 2020-03-09 10:08 | BH.SGPN.GN ---
Behaviors/Verbalizations/Mental Status: []Client alert and oriented, casual appearance. Eye contact good. Motor activity appropriate. Speech within normal limits. Affect unable to gather due to wearing a mask for COVID, mood anxious. Thoughts linear, logical, no signs of hallucinations or delusions. Client Response/Progress/Benefit: []Client responded well to session, nodding frequently during discussion and engaged during the activity. Attentive during discussion on the quote. Group identified benefits to change included: improved mental health, independence, clearer thinking, and getting out of unhealthy situations. Worked with the group to identify barriers to change, which included: guilt, sense of obligation to others, discomfort, fear of the unknown, and negative thinking. Client participated along with group in activity where they identified and discussed the emotions related to change. Client agreed with peers that change makes him feel anxious, however, client acknowledged that not all change is bad and that some changes are exciting. Benefited from increased awareness and understanding of emotions, benefits, and barriers related to change. Will continue IOP tx to further reduce anxiety, increase ability to manage intrusive thoughts, and improve confidence. Narrative Note: []
--- NOTE | 2020-03-09 11:10 | BH.SGPN.GN ---
Behaviors/Verbalizations/Mental Status: []Client alert and oriented, neatly dressed and groomed. Eye contact good. Motor activity appropriate. Speech within normal limits, quiet. Affect unable to gather due to wearing a mask for COVID-19 protocol, mood anxious, depressed. Thoughts linear, logical, no signs of hallucinations or delusions. Client Response/Progress/Benefit: []Client was a semi-active participant, contributing some to discussion and listening attentively to peers. He took notes throughout. Client attentive during discussion on the change process as well as weighing the pros and cons associated with change. He nodded and indicated connecting with emotions the group identified as associating with change. Client expressed experiencing fear and self-doubt when faced with change in the past. Client benefited from learning to work through pros/cons of personal changes through use of decisional balance sheet. Struggled to identify a change he wants to make though declined assistance in completing the decisional balance worksheet examining pros/cons of a potential change. Progress noted in increased insight and willingness to try applying skills learned in individual sessions though continues to struggle with connecting group materials to own life. Recommended continued outpatient tx to prevent decompensation, continue to improve mood stability, and reinforce application of healthy anxiety management skills. Narrative Note: []
--- NOTE | 2020-03-09 12:24 | PCM.BH.PN_ITS ---
Progress Note Progress Note: History of Present Illness/Interim History: [] The patient is a 39-year-old male who is seen in follow-up at the [facility] behavioral health IOP program. I last saw the patient 1 week ago. The patient states that he feels better than last week. He says his mood is somewhat better. He is still anxious but feels a little less severe in his anxiety. He feels that the increased dose of Remeron has helped him and he has been on this for 1 week. He still has intrusive obsessions and anxiety about his condition worsening. He feels his mood bait may be already a little improved from the Remeron. He has occasional down days and had one last week. His sleep is okay overall. He agrees to continue the melatonin because he slept straight through the night when he was on this and the other medications. He is doing well at work but mostly is working from home now. He denies any suicidal or homicidal ideation. He denies any thoughts of . Current Psychiatric Medications: [] Prozac 20 mg p.o. daily (x2 weeks now).; Remeron 30 mg p.o. nightly (x1 week). Mental Status Examination: [] Patient is a 39-year-old male who is seen wearing a mask due to the pandemic and is casually dressed and groomed with good hygiene. He is cooperative and pleasant during the interview. He has no psychomotor agitation or retardation. His eye contact is good and his speech is normal rate and rhythm and fluent with no pressure. Mood is anxious and somewhat depressed. Affect is constricted. Thought process is organized and goal-directed. Thought content: He continues to obsess over being nervous and depressed and possible getting worse. No evidence of suicidal or homicidal ideation. No evidence of hallucinations or delusions. Judgment is intact. Insight: Improving. Impulsivity: Low. Diagnoses: [] [place] I: [] Major depressive disorder, recurrent, severe without psychosis; obsessive-compulsive disorder; generalized anxiety disorder Stillmore II: [] Deferred Stillmore III: [] History of knee surgery impacting ability to exercise Stillmore IV:[]] Primary support, work and health issues Plan: [] Patient will continue the IOP program at [facility] as a support, structure, education, individual and group therapy will hopefully prevent worsening of the patient's symptoms that might require hospitalization. He felt safe during the interview and if at any time he is not feel safe he will let us know or go to the emergency room. The risks, options, possible side effects and complication of the medications were discussed with the patient and he understands and accepts these. We will continue the Remeron at the same dose. He agrees to increase the Prozac to 40 mg p.o. daily. He is nervous about doing this so he agrees to take 20 mg one day and 40 mg every other day for 1 week and then increase to 40 mg p.o. daily if he is tolerating this. I did not give a prescription as he has enough medications at home to do this.
--- NOTE | 2020-03-09 14:43 | BH.MDN_ITS ---
Multi-Disciplinary Note - Note 45-min Individual Time Started:: 09:25 Date: 03/09/20 Purpose of session/treatment goals addressed:: The purpose of this session was to address client's current symptoms, stressors, and anxious thought patterns. Another goal was to practice exposure techniques to reduce anxiety. Eye Contact:: Good Motor Activity:: Appropriate Appearance:: Neat Speech:: Other - circumstantial Mood:: Anxious Affect:: Other - unable to gather due to client wearing a mask for COVID protoco l Thoughts:: Circular, No evidence of hallucinations/delusions noted Staff Interventions:: Therapist used open-ended questions and active listening while providing a safe space for client to process and verbalize his emotions, symptoms, and stressors. Therapist reviewed client's homework and discussed it with client. Therapist used strengths perspective to help client practice self- empowerment for his use of coping skills. Therapist provided psychoeducation on ERP and taught client a desensitizing technique to deliberately expose client to his intrusive thoughts until client?s brain has a chance to habituate the thought and reduce anxiety. Therapist gave homework to practice this technique three times a day. Client Response:: Client responded well to session, open to meeting with therapist. Client identified some progress with sitting with his anxiety and uncomfortable thoughts this weekend. Client stated he was able to get his anxiety to go away by practicing acceptance. Client shared this technique is really hard because sometimes it is effective and other times client is unable to reduce anxiety. Client reported he continues to struggle with obsessing over getting better. Client shared he gets intrusive thoughts about being a depressed person and never getting better. Receptive to psychoeducation on ERP and practicing the desensitizing technique. Client identified three intrusive thoughts that continue to keep client stuck. These included: I'm a depressed person, I going to go crazy and lose it, I'm not going to get better. Client said each thought out loud ten times in a row taking a deep breath between each. After repeating these thought many times, client was able to see how his brain was becoming bored with these thoughts. Shared seeing promise in this technique and willing to practice it for homework. Client's goal is to practice this technique three times a day saying each thought 20 times each. Risks/Concerns:: Client denies any suicidal ideations, plans, or intent as of 03/09/20. Progress Toward Goals/Plan:: Client is making progress towards treatment goals AEB less crying in group and individual sessions and per client?s report of sitting with uncomfortable feelings this weekend. Client shared he was proud of himself for letting his anxiety ?just be.? Client continues to report that work is going well, client is still part-time. Client reports he is still struggling with practicing acceptance and letting his thoughts come and go. Client endorses a depressed mood, crying spells, hopelessness, intrusive thoughts about worsening mental health symptoms, anxiety, and compulsions such as researching. Client endorses numerous negative core beliefs of self as well. Client receptive to homework of practicing exposure exercises. Client to continue IOP to prevent decompensation, reduce anxiety, and help client return to his baseline. Time Stopped:: 10:06
--- NOTE | 2020-03-14 09:01 | BH.SGPN.GN ---
Behaviors/Verbalizations/Mental Status: []Client alert and oriented, casual dress, hygiene tended to. Eye contact good. Motor activity appropriate. Speech within normal limits. Affect congruent, mood depressed, anxious. Thoughts appearing to be ruminative in nature, no signs of hallucinations or delusions. Reviewed client?s symptom tracker, pt denies current suicidal thoughts or intention to date. Client Response/Progress/Benefit: []Pt was an active participant in group discussion, providing input and feedback throughout, as well as openly processing thoughts and emotions with the group. Pt stated feeling ?concerned? todays as he had a difficult day yesterday and has been struggling with thoughts of ?am I going to feel this way forever?. Indicated that throughout the day he had been trying to fight his anxiety and ended up worrying about being worried which made him feel worse. With prompting, pt did well to identify current mental health wins as taking time to go for a hike and spend time with his and daughter which helped to reduce negative thoughts. Pt continues to struggle with anhedonia and intrusive thoughts which impact progress and are further effected by pt?s difficulties in incorporating components of exposure therapy learned in session. Pt recommended to continue IOP level of care to increase healthy coping, improve mood management, and prevent decompensation. Narrative Note: []
--- NOTE | 2020-03-14 10:20 | BH.SGPN.GN ---
Behaviors/Verbalizations/Mental Status: []Client alert and oriented, casual dress, hygiene tended to. Eye contact fair. Motor activity appropriate. Speech within normal limits. Affect could not be assessed due to pt wearing a face mask as precaution against coronavirus. mood anxious and depressed. Thoughts linear and logical. No evidence of delusions or hallucinations. Client Response/Progress/Benefit: []Pt passive participant AEB pt providing limited input throughout session, however did appear to be taking notes and listen attentively to peers. Pt appeared to connect with the topic of fear of failure. Pt connected with others that he has the expectation that his mental health progress would be linear. Pt appeared to relate to peers that he is setting himself up for failure by having high expectations that he wouldn't have any setbacks in mental health recovery. Engaged and positive during the group activity. Pt appeared to benefit from gaining awareness of the impact of fear of failure can have on one?s mental health and wellbeing. Progress seems hindered by pt's difficulty with utilizing skills outside of treatment environment. Will continue IOP tx to increase use of healthy coping skills, decrease high expectations and prevent decompensation. Narrative Note: []
--- NOTE | 2020-03-14 11:20 | BH.SGPN.GN ---
Behaviors/Verbalizations/Mental Status: []Client alert and oriented, casual appearance. Eye contact good. Motor activity appropriate. Speech within normal limits. Affect unable to gather due to wearing a mask for COVID-19 protocol, mood anxious, frustrated, and depressed. Thoughts linear, logical, no signs of hallucinations or delusions. Client Response/Progress/Benefit: []Client responded well to session, participating during the group activity and willing to complete the worksheet. Client completed the fear of failure worksheet and reported that fear of failure has kept him from advocating for himself, being at peace, and having a sense of accomplishment. Client able to identify barriers that reinforce fear of failure which included: dread, procrastination, fear he cannot cope with the consequences, catastrophizing and other distortions, and unrealistic expectations for self. Client attentive during discussion of the different strategies to help overcome fear of failure. Group identified strategies such as: setting boundaries, fear setting, accepting his fear and getting comfortable with the uncomfortable, and self-compassion. Client appeared to benefit from learning ways to overcome fear of failure. Will continue IOP tx to reduce intrusive thinking that reinforces depression and anxiety, improve mood stability, and improve ability to cope with stress. Narrative Note: []
--- NOTE | 2020-03-16 09:03 | BH.SGPN.GN ---
Behaviors/Verbalizations/Mental Status: []Client alert and oriented, casual dress. Eye contact good. Motor activity appropriate. Speech within normal limits. Mood euthymic, anxious. Affect congruent, though difficult to gather due to client wearing mask per [address] guidelines. Thoughts linear, logical, no signs of hallucinations or delusions. Reviewed client?s symptom tracker, no signs of suicidal ideation, plan, or intent as of today. Client Response/Progress/Benefit: []Pt responded well to session, actively engaged throughout, providing feedback and input to discussion. Reports feeling good but struggling not to anticipate the bad today as he feels he is making progress in better coping with his anxiety and depression but worries that one good day could easily turn into something bad. Receptive of encouragement and support provided by group regarding acceptance of progress and strategies to combat the urge to disqualify positives. Pt did well to identify areas of progress which included challenging his desire to ?keep fighting the anxiety and depression, and instead accepting the idea of learning to live alongside of it. Additional win noted as continuing to take steps to improve overall understanding of anxiety and OCD, as well as being more open to different treatment options and approaches. Pt receptive of and appeared to benefit from support provided by the group as well as identifying areas of progress. Continues to struggle with significant rumination which impacts overall ability to make consistent treatment progress. Will continue IOP tx to increase application of coping skills which promote mood stability, improve application of calming skills, and maintain gains made. Narrative Note: []
--- NOTE | 2020-03-16 10:09 | BH.TPR ---
Treatment Plan Review Date of Admission:: 02/17/20 Date of Treatment Plan Review:: 03/16/20 Admitting Diagnoses:: Major depressive disorder recurrent severe without psychosis F33.2; obsessive-compulsive disorder (obsessions only) F42.2; generalized anxiety disorder Current Diagnoses:: Major depressive disorder recurrent severe without psychosis F33.2; obsessive-compulsive disorder (obsessions only) F42.2; generalized anxiety disorder Patient's Response to Treatment:: Client has shown positive strides and progress since admission to [facility]. When client started [facility] he was experiencing significant anxiety, panic attacks, depressive symptoms and hopelessness, crying spells, inability to concentrate, intrusive thoughts, and feelings of dread on a daily basis. Client was having a very difficult time connecting and getting out of his own head. At review, client reported the duration of compulsions has decreased, he has been practicing more acceptance, and he has more ?good days.? Client has also been practicing mindfulness daily and has been practicing acceptance of intrusive thoughts. Client is active in both group and individual therapy sessions. Client contributes to group discussions, offered emotional support to peers, and took notes. In individual sessions, client is receptive to feedback, consistent with homework, and willing to sit with uncomfortable emotions. Client does continue to struggle with setting realistic expectations for himself and often expresses all or nothing thinking about his progress. Client?s DSM-5 scores decreased overall by 31% since admission. Depression as decreased by 20%, anxiety by 16%, and OCD by 33%. Status of Current Problems and Symptoms: Client continues to struggle with intrusive thinking, engaging in compulsive behaviors, and having unrealistic expectations for self. Client also reports finding it difficult to accept good days and often worries that the next shoe is going to drop. Additionally, client continues to work on challenging distortions such as mental filtering and all or nothing thinking that reinforces anxiety and depression. Problem #1 Problem Name:: Decrease depressive symptoms, hopelessness, and crying spells Status of Goals:: Objective 1- complete with ongoing work encouraged. Client?s DSM-5 scores for depression decreased by 20% since admission. Client reports practicing opposite action and exercising to improve mood. Objective 2- partially complete. Client can identify negative self-talk statements and is aware of how to challenge these. However, client struggles to challenge negative self-talk statements without external support. Client?s unrealistic expectations have been a source of distress for client and impact how client views progress. Team Recommendations:: Client is recommended to continue working on treatment goals as client has made progress, but he continues to struggle with disqualifying his progress and practicing self-compassion. Client can benefit from continuing to build his coping skills for depression. Problem #2 Problem Name:: Reduce overall frequency, intensity, and duration of anxiety and intrusive Status of Goals:: Objective 1- partially complete. Ongoing work encouraged. Client is able to identify intrusive thoughts and has been practicing acceptance, mindfulness, and opposite action to overcome these thoughts. However, client still continues to struggle with managing these thoughts on a consistent basis. Objective 2- complete with ongoing work encouraged. Client?s DSM-5 scores have decreased by 16% since admission and client has been reporting practicing mindfulness and other coping skills. Client can continue to reduce safety behaviors that reinforce anxiety. Team Recommendations:: Client is recommended to continue working on treatment goals as client has made progress, but he continues to report intrusive thoughts and anxiety on an almost daily basis. Client can benefit from ongoing work to reduce intrusive thoughts and improve distress tolerance.
--- NOTE | 2020-03-16 10:15 | BH.SGPN.GN ---
Behaviors/Verbalizations/Mental Status: []Client alert and oriented, casually dressed and groomed. Eye contact good. Motor activity appropriate. Speech within normal limits. Affect unable to gather due to client wearing a mask for COVID-19 protocol, mood anxious and euthymic Thoughts linear, logical, no signs of hallucinations or delusions. Client Response/Progress/Benefit: []Client was an active participant as shown by contributing to discussion. Client shared connecting to group topic of self-care and commented ?self-care is not really built into our culture. I think the reason I?m here is because I haven?t taken care of myself well.? Client helped the group discuss benefits of self-care which included: gain confidence, promote self-love, promotes healthier boundaries, improves mental and physical health, improve relationships, better emotional regulation. Client reported belief that he is engaging in better self-care practices sense starting IOP. Participated in the discussion of the common myths about self-care including self-care is a luxury, unproductive, selfish, takes too much time, self-indulgent, should always be fun, too hard/challenging, and makes a person weak. Client participated in the discussion on debunking of these myths. Client seemed to benefit from increased awareness of the importance of self-care and challenging common myths that prevent practicing self-care. Will continue IOP tx to further decrease anxiety and intrusive thinking that has been hindering functioning. Narrative Note: []
--- NOTE | 2020-03-16 11:49 | PCM.BH.PN ---
Progress Note Progress Note: History of Present Illness/Interim History: [] Patient is a 39-year-old female who is seen in follow-up at the [facility] behavioral health IOP program. I last saw the patient 1 week ago. The patient states that he is doing pretty well today but does admit that he is still worried about getting worse in his symptoms of anxiety and depression. He is tolerating the increased Prozac dose well and he will start the 40 mg p.o. daily this week. He is having now only occasional down days. He denies passive thoughts of , suicidal or homicidal ideation. His obsessive thoughts remain but he understands these will take a long time to resolve. Current Psychiatric Medications: [] Prozac 40 mg / 20 mg every other day for 1 week. Remeron 30 mg p.o. nightly for 2 weeks. Mental Status Examination: [] Patient is casually dressed and groomed with good hygiene and appears normal for stated age. He is wearing a mask due to the pandemic. He has no psychomotor agitation or retardation. Eye contact is good and speech is normal rate and rhythm and fluent with no pressure. Mood remains anxious and somewhat depressed at times. Affect is constricted. Thought process is goal-directed and organized. Thought content: No evidence of suicidal or homicidal ideation. No evidence of hallucinations or delusions. Judgment is intact. Insight: Improving. Impulsivity: Low. Diagnoses: [] [place] I: [] Major depressive disorder, recurrent, severe without psychosis; obsessive-compulsive disorder; generalized anxiety disorder [place] II: [] Deferred history of knee surgery impacting ability to exercise [place] III: [] [place] IV:[]] Primary support, work and health issues Plan: [] The patient will continue the IOP program as the support, structure, education, individual and group therapy will hopefully prevent worsening of the patient's symptoms. He felt safe during the interview and if at any time he does not feel safe he will let us know or go to the emergency room. The risk, options, possible side effects complications of medications were discussed with the patient and he understands and accepts these. He will continue all his current medications at the same dose and increase the Prozac to 40 mg every day. He will follow-up with me in 1 week.
--- NOTE | 2020-03-16 15:17 | BH.MDN_ITS ---
Multi-Disciplinary Note - Note 60-min Individual Time Started:: 11:53 Date: 03/16/20 Purpose of session/treatment goals addressed:: The purpose of this session was to address client's current symptoms, stressors, and progress. Another goal was to address safety behaviors/compulsions that reinforce anxiety and intrusive thinking. Eye Contact:: Good Motor Activity:: Appropriate Appearance:: Neat Speech:: Rapid Mood:: Euthymic, Anxious Affect:: Other - unable to gather due to client wearing a mask for COVID protocol. Thoughts:: Circular, No evidence of hallucinations/delusions noted Staff Interventions:: Therapist used open-ended questions and active listening to explore client?s current symptoms, stressors, and progress. Therapist had client complete the DSM-5 to assess and evaluate progress. Therapist reviewed client's homework and explored client?s experience with ERP techniques. Therapist used strengths perspective to empower client on his progress. Therapist provided psychoeducation on compulsions/safety behaviors and explored client?s compulsions. Therapist gave homework to reduce the amount of time he spends researching each day. Client Response:: Client responded well to session, open to meeting with ther apist. Client stated he is actually doing well today and shared I'd be doing great if I didn't have this background thought of when will the next shoe drop. Practiced in the moment acceptance strategies. Client reflected on progress he has noticed since starting IOP. Client shared a month ago I was really bad and stated he now has more hope and confidence in himself. Client stated he wants to explore ERP therapy for after IOP. Client reported he found the desensitizing strategy from last session to be helpful. Client receptive to addressing his safety behaviors/compulsions today that reinforce anxiety. Client's compulsions included: researching for multiple hours a day, seeking reassurance from his , procrastinating, and self-monitoring. Client willing to reduce his research to one hour a day rather than two plus hours. Client will do this by setting a timer for thirty minutes on his lunch break and thirty minutes after work. Client also willing to continue practicing acceptance strategies. Risks/Concerns:: Client denies any suicidal ideations, plan, or intent as of 03/16/20. Progress Toward Goals/Plan:: Client is making progress towards treatment goals AEB less crying, consistent use of coping skills, and self-report of an improving mood. Client completed the DSM-5 and his overall scores decreased by 31%, anxiety decreased by 16%, and depression decreased by 20%. Client reports he is still struggling with practicing acceptance and he continues to engage in some safety behaviors that reinforce anxiety. Client endorses a depressed mood of reduced intensity, intrusive thoughts about worsening mental health symptoms, anxiety, and compulsions such as researching. Client shared he feels less hopeless which is progress. Client receptive to homework of reducing safety behaviors. Client to continue IOP to promote gains, further improve functioning, and reduce intrusive thoughts. Time Stopped:: 12:40
--- NOTE | 2020-03-18 09:00 | BH.SGPN.GN ---
Behaviors/Verbalizations/Mental Status: []Client alert and oriented, neatly dressed and groomed. Eye contact good. Motor activity restless. Speech within normal limits. Affect congruent-tearful, mood anxious and depressed. Thoughts racing, no signs of hallucinations or delusions. Reviewed client?s symptom tracker, no risk for suicidal ideation, plan, or intent as of 03/18/20. Client Response/Progress/Benefit: []Client responded somewhat well to session, receptive to feedback, but tearful and distracted at times. Client reports feeling hopeless this morning and shared I'm really struggling. Client stated he has been ruminating on his intrusive thoughts and hyperfocusing on his emotions. Client stated I have these waves of dread which client then overanalyzes and leads client to believe he is depressed and will never get better. Group attempted to challenge client's perspective and offered client emotional support. Client acknowledged that because of his current mood state, he is viewing his progress and treatment through a depressed lens which is distorted. Encouraged to practice calming skills today to ground himself. Appeared to benefit from receiving support from peers. Progress continues to be mild as client has positive strides in managing his mental health symptoms, however, client struggles to practice self-compassion and set realistic expectations for self which triggers negative thinking. Will continue IOP tx to promote use of healthy coping skills, reduce distortions and intrusive thinking, and improve daily functioning. Narrative Note: []
--- NOTE | 2020-03-18 10:14 | BH.SGPN.GN ---
Behaviors/Verbalizations/Mental Status: []Eye contact is good. Motor activity is appropriate. Appearance is casual. Speech is WNL, soft. Mood is dysthymic, anxious. Affect unable to gather due to wearing a mask for COVID-19 protection. Thoughts are linear and logical. No evidence of psychosis. Client Response/Progress/Benefit: []Pt was engaged AEB taking notes and participating in activity, remained mostly passive during discussion portion though nodding throughout and appearing to connect with materials. Connected with the topic of pitfalls and expressed connecting with fellow participants that sometimes taking the ?right path? can initially feel more difficult than maintaining unhealthy means for coping. Pt actively listening as the group discussed barriers that keep them from choosing a healthier path to mental wellness. These barriers included; difficulties adjusting to change, fear of failure, habit, and lack of awareness. Pt reported difficulty accepting his mental health has been a barrier impeding ability to make progress. Pt was engaged during the activity and did well to provide support to the group. Willing to take directions and actively listened to suggestions provided by fellow participants. Pt benefited from increased awareness on the impact that pitfalls can have on mental health. Progress noted in pt increased ability to practice radical acceptance concepts and reports of improved overall mood, though continues to struggle with significant intrusive thoughts. Will continue IOP tx to maintain gains, improve ability to manage intrusive thought patterns, and better manage mental health sx. Narrative Note: []
--- NOTE | 2020-03-21 09:03 | BH.SGPN.GN ---
Behaviors/Verbalizations/Mental Status: []Client alert and oriented, casual dress. Eye contact fair to good. Motor activity appropriate. Speech within normal limits. Mood dysthymic, anxious. Affect congruent, though difficult to gather due to client wearing mask per [address] guidelines. Thoughts linear, logical, no signs of hallucinations or delusions. Reviewed client?s symptom tracker, no signs of suicidal ideation, plan, or intent as of today. Client Response/Progress/Benefit: []Pt responded well to session, engaged throughout and providing input. Reports feeling anxious today as he noted struggling with increased intrusive thoughts over the past day. Indicated ongoing difficulties with accepting and being able to work through his anxiety. He shared however that spending time with his and daughter has been helpful thus far and indicated plans to go for a hike with his today. With prompting, pt was able to identify some areas of progress experienced over the weekend which included feeling more ?normal? and like himself on Saturday evening and Saturday. Attributes this to his medication ?finally kicking in?. Pt additionally noted practicing some of the deep breathing exercises he has learned. Pt receptive of and appeared to benefit from support provided by the group. Continues to struggle with self-confidence, significant intrusive thinking, and limited skill application outside tx environment which impacts pt?s overall ability to make consistent treatment progress. Will continue IOP tx to increase application of coping skills which promote mood stability, improve anxiety management, and prevent decompensation. Narrative Note: []
--- NOTE | 2020-03-21 11:17 | BH.SGPN.GN ---
Behaviors/Verbalizations/Mental Status: []Eye contact is good. Motor activity is appropriate. Appearance is neat. Speech is Appropriate. Mood is anxious and depressed. Affect unable to gather due to wearing a mask as COVID protocol. Thoughts are linear and logical. No evidence of psychosis Client Response/Progress/Benefit: []Client was engaged and contributing to discussion, did well to develop a personal SMART goal. Client chose the goal; to meditate for 20 minutes every day this week. When asked why this goal was important and beneficial to client's mental health, he stated it will help him get back into a routine and be patient with his medication changes. Identified the following barriers to completing this goal which included; lack of time and motivation, high anxiety, and all or nothing thinking. Identified solutions to barriers which included: setting reminders, reminding self of benefits, establishing a routine, and use positive self-talk. Benefited from this group by developing a short-term SMART goal related to mental health. Will continue IOP tx to promote mood stability, increase ability to manage intrusive thoughts, and improve daily functioning. Narrative Note: []
--- NOTE | 2020-03-23 09:00 | BH.SGPN.GN ---
Behaviors/Verbalizations/Mental Status: []Client alert and oriented, neatly dressed and groomed. Eye contact fair. Motor activity appropriate. Speech within normal limits. Affect unable to gather due to wearing a mask for COVID-19 protocol, mood anxious and dysthymic. Thoughts linear, logical, no signs of hallucinations or delusions. Reviewed client?s symptom tracker, no risk for suicidal ideation, plan, or intent as of 03/23/20. Client Response/Progress/Benefit: []Client responded well to session, providing supportive statements and receptive to feedback. Client reports feeling anxious this morning which client reported is his baseline these days. Client stated he struggles to identify positives during first group because when he is feeling anxious it is hard to see anything being different. The group gently challenged client's perspective and helped client recognize that his emotions are valid, but not fact. Client's positives today were that he has been trying to eliminate his safety behaviors and he had a good therapy session yesterday. Appeared to benefit from challenging his perspective in the moment. Will continue IOP tx to further decrease intrusive thinking, improve mood stability, and reduce anxiety to improve functioning. Narrative Note: []
--- NOTE | 2020-03-23 10:15 | BH.SGPN.GN ---
Behaviors/Verbalizations/Mental Status: [] Eye contact is good. Motor activity is appropriate. Appearance is casual. Speech is Appropriate. Mood is anxious. Affect is congruent. Thoughts are linear and logical. No evidence of psychosis. Client Response/Progress/Benefit: [] Pt was an active participant in group discussion and was engaged in group. Pt worked with the group to define growth in terms of mental health wellness and then identified events that can lead to growth which include; change in perspective, increased knowledge, accountability, and support/encouragement. Pt also worked together with peers to identify and define internal and external forces in mental health and their role in growth. Provided insight and suggestions during group psychoeducation on examples and impact of negative/positive internal and external forces. Progress noted in regards to increase knowledge and insight on role of internal/external forces on mental health. Will continue in IOP to learn and implement consistent health coping skills for intrusive thoughts, Narrative Note: []
--- NOTE | 2020-03-23 12:07 | PCM.BH.PN_ITS ---
Progress Note Progress Note: History of Present Illness/Interim History: [] The patient is a 39-year-old male who is seen in follow-up at the [facility] behavioral health IOP program. The patient requests to be seen every week as he feels he benefits from having his questions answered and from reassurance. I last saw the ziyad ent 1 week ago and at that time he was placed on Prozac 40 mg p.o. daily every day. He states that he is tolerating this medication well and overall has not had any significant side effects. In addition he feels that his mood was quite improved for a few days but then it decreased to more towards the is normal anxious state. He still has a lot of worry and some intrusive thoughts and worry that he will get worse. His mood he says is better and he feels he is definitely less depressed overall. I discussed with the patient that the obsession and OCD kind of obsessions will take longer to improve and sometimes take up to 12 weeks to improve. He denies any suicidal or homicidal ideation. He denies passive thoughts of . Current Psychiatric Medications: [] Prozac 40 mg p.o. daily; Remeron 30 mg p.o. nightly. Mental Status Examination: [] Patient is casually dressed and groomed with good hygiene and is seen wearing a mask due to the pandemic. He has no psychomotor agitation or retardation. His eye contact is good and his speech is normal rate and rhythm and fluent with no pressure. Mood is mildly anxious and remains somewhat constricted. Affect is constricted. Thought process is goal-directed and organized. Thought content: No evidence of suicidal or homicidal ideation. No evidence of hallucinations or delusions. There is evidence of continued obsessing over the fact that he is depressed and that he is worried it may get worse. Judgment is intact. Insight: Improving. Impulsivity: Low. Diagnoses: [] [place] I: [] Major depressive disorder, recurrent, severe without psychosis; obsessive-compulsive disorder; generalized anxiety disorder [place] II: [] Deferred [place] III: [] History of knee surgery impacting ability to exercise [place] IV:[]] Primary support, work and health issues Plan: [] The patient will continue the IOP program as the support, structure, education, individual and group therapy will hopefully prevent worsening of the patient's symptoms. He felt safe during the interview and if at any time he does not feel safe he will let us know or go to the emergency room. The risks, options, possible side effects and complications of the medications were discussed with the patient and he understands and accepts these. No medication dosage changes were made at this time. I will see the patient in follow-up in 1 week as again he feels he benefits from the discussion with me about symptoms and medications.
--- NOTE | 2020-03-23 14:08 | BH.MDN_ITS ---
Multi-Disciplinary Note - Note 45-min Individual Time Started:: 11:39 Date: 03/23/20 Purpose of session/treatment goals addressed:: The purpose of this session was to address client's current symptoms, stressors, and anxious thought patterns. Another goal was to create goals for self-care and social support. Eye Contact:: Good Motor Activity:: Appropriate Appearance:: Neat Speech:: Rambling Mood:: Anxious Affect:: Other - unable to gather due to wearing a mask for COVID-19 protocol. Thoughts:: Circular, Other - obsessions, No evidence of hallucinations/delusions noted Staff Interventions:: Therapist used open-ended questions and active listening while providing a safe space for client to process and verbalize his emotions, symptoms, and stressors. Therapist reviewed client's homework and discussed it with client. Therapist used strengths perspective to help client practice self- empowerment for his use of coping skills. Therapist and client discussed strategies to reduce client?s stress response and promote self-care. Therapist encouraged client to set a self-care goal for the week. Client Response:: Client responded well to session, open to meeting with therapist. Client stated he continues to struggle because he has not seen significant progress. Client admits that he has all or nothing thinking, which makes it challenging for client to give himself credit for smaller progress. Client and therapist discussed homework from previous session. Client shared the homework went well and he found the desensitization technique to be helpful. Client stated he still feels anxious most days and have obsessive thoughts. Discussed ways to help client get out of fight, flight, freeze mode. Client shared in the past lifting, spending time with friends, writing songs, and being care-free in nature were all things he enjoyed. Client shared he does not do these things as often because of his knee and negative thinking. Client recognized that getting back to these activities would likely improve client's mood and therefore reduce intrusive thinking. Client's goal this week is to bike twice a week, lift once a week, listen to music on car rides instead of books on tape, and talk to his brother once this week. Risks/Concerns:: Client denies any suicidal ideations, plan, or intent as of 03/23/20. Progress Toward Goals/Plan:: Client is making progress towards treatment goals AEB less crying, consistent use of coping skills, and self-report of increased frequency of ?good days.? Last week client completed the DSM-5 and his scores decreased. However, client continues to see significant progress which causes client distress. Client reports he is still struggling with practicing acceptance some days and continues to have all or nothing thinking about prog ress. Client endorses a depressed mood of reduced intensity, intrusive thoughts about worsening mental health symptoms, anxiety, and compulsions such as researching. Client to continue IOP to promote gains, further improve functioning, and increase self-care. Time Stopped:: 12:20
--- NOTE | 2020-03-25 09:00 | BH.SGPN.GN ---
Behaviors/Verbalizations/Mental Status: [] Eye contact is good. Motor activity is appropriate. Appearance is casual. Speech is Appropriate. Mood is anxious. Affect is congruent. Thoughts are linear and logical. No evidence of psychosis. Reviewed daily check in sheet and no reports of suicidal ideations or intent. Client Response/Progress/Benefit: [] Pt participated at times. Emotion for today is anxious. Significant anxiety reported stating my mind has been racing for days. Notes regression ... I haven't been relaxed. Difficulty managing intrusive thoughts. Skills have not been as effective however unclear which skills he is using. Notes distraction and meditation however no thought-stopping noted. Difficulty utilizing acceptance. Constant worry. [place] improved mood last week and was hopeful. Currently ruminating that that was a fluke and that he will not get better. Group pointed out overall improvement and how progress is not linear. Pt focused on getting back to normal and is stressed what his new emotional normal will be. Allowed pt to vent. Regression noted. Benefited from group support and encouragement. Will continue in IOP to stabilize anxiety, medication mgmt, and to increase healthy coping skills for intrusive thoughts. Narrative Note: []
--- NOTE | 2020-03-25 10:15 | BH.SGPN.GN ---
Behaviors/Verbalizations/Mental Status: []Client alert and oriented, casually dressed and groomed. Eye contact good. Motor activity appropriate, at times appearing restless and fidgety. Speech within normal limits. Affect unable to gather due to client wearing a mask as a COVID protocol, mood anxious and agitated. Thoughts linear, logical, appearing ruminative in nature, no signs of hallucinations or delusions. Client Response/Progress/Benefit: []Client was a mostly engaged participant AEB listening attentively to others, and taking notes, though remained passive during discussion. Client expressed struggling with overwhelming anxiety and racing thoughts which appeared to impact ability to focus at times. Expressed he could connect with the importance of learning ways to sit with uncomfortable feelings, though indicated struggling significantly in being able to do so. Client connected with discussion on the difference between ?normal? anxiety and when anxiety becomes problematic. Discussing that problematic anxiety can be identified when you are no longer able to feel connected with others or engaged in daily routine. Expressed this was one of his first anxiety symptoms prior to seeking treatment. Client gained awareness of personal physical symptoms of anxiety which included: decreased focus, muscle pains, and restlessness. Client also identified safety behaviors used when feeling anxious. These safety behaviors included; disconnecting from others and reassurance seeking. Client appeared to benefit from gaining insight to physical signs of anxiety and personal safety behaviors. Progress limited as client continues to struggle significantly with managing intrusive thoughts and struggle to engage or actively implement skills learned as a result. Will continue IOP to increase consistent application of healthy coping skills, continue to improve anxiety management, and promote gains. Narrative Note: []
--- NOTE | 2020-03-25 11:15 | BH.SGPN.GN ---
Behaviors/Verbalizations/Mental Status: [] Eye contact is good. Motor activity is restless. Appearance is casual. Speech is Appropriate. Mood is anxious. Affect is congruent. Thoughts are linear and logical. No evidence of psychosis. Client Response/Progress/Benefit: [] Pt was an active participant in group discussion and provided insight on group topic. Pt was visibly anxious and distracted during psycho-education on mindfulness coping skills and their impact on her mental health wellness. Pt was able to identify self-soothing, mind-based, and body-based coping skills he wants to incorporate into her current coping skills however little noted possibly due to current distress. Limited progress today as intrusive thoughts and mood made it difficult to fully participate. Receptive to incorporating new skills. Will continue in IOP to maintain safety, increase healthy coping skills, and prevent decompensation. Narrative Note: []
== END 2020-03-25 23:59 ==
LOC: BHIOP 09:00
PROVIDERS: PCP Internal Medicine; Referring Provider Psychiatry & Neurology Psychiatry; Visit Provider Psychiatry & Neurology Psychiatry
DX: F33.2 Major depressive disorder, recurrent severe without psychotic features (principal); F42.9 Obsessive-compulsive disorder, unspecified; F41.1 Generalized anxiety disorder; Z79.899 Other long term (current) drug therapy
CPT/HCPCS: H0035; 90834; 90837; 90853

== ENCOUNTER 2020-03-28 09:00 | Outpatient (RCR) | payer OTHER, SELFPAY ==
[2020-03-11 15:27] VITALS: BMI 25.0
[2020-03-26 00:36] VITALS: BP 122/68; PULSE 78
--- NOTE | 2020-03-28 09:01 | BH.SGPN.GN ---
Behaviors/Verbalizations/Mental Status: [] Client alert and oriented, casual dress. Eye contact good. Motor activity appropriate. Speech within normal limits. Mood dysthymic, anxious. Affect congruent, though difficult to gather due to client wearing mask per [address] guidelines. Thoughts linear, logical, no signs of hallucinations or delusions. Reviewed client?s symptom tracker, no signs of suicidal ideation, plan, or intent as of today. Client Response/Progress/Benefit: [] Pt responded well to session, engaged throughout. Reports feeling anxious today as he noted continuing to struggle intrusive thoughts over the weekend. Indicated that he continues to seek ?a way to fix my anxiety? despite recognizing that there is no ?quick fix? solution. Pt indicated that meditation has been helpful in allowing him to slow down and focus on something other than his intrusive thoughts. Pt noted ?I?m working on rewiring my brain? but expressed difficulties with managing fear of what will happen if he can?t find a solution to his anxiety. Identified focusing on his anxious thoughts continue to reinforce anxiety and prevent consistent progress. Pt did however do well to identify areas in which he has been making progress which include actually setting aside to relax and engage in activities he used to enjoy such as working out. Pt receptive of and appeared to benefit from identifying small areas of progress as well as giving himself credit for personal wins. Will continue IOP tx to increase application of anxiety management skills, improve consistency, and prevent decompensation. Narrative Note: []
--- NOTE | 2020-03-28 10:20 | BH.SGPN.GN ---
Behaviors/Verbalizations/Mental Status: []Client alert and oriented, casual dress, hygiene tended to. Eye contact fair. Motor activity appropriate. Speech within normal limits. Affect could not be assessed due to pt wearing a mask as a COVID-19 required precaution. Mood dysthymic and anxious. Thoughts linear, logical, no signs of hallucinations or delusions. Client Response/Progress/Benefit: []Pt mostly passive participant AEB pt providing limited contributions during discussion, however, did appear to listen attentively. Pt recognized when just communicating with behavior people don?t know how you feel. Group identified barriers to healthy communication included: racing thoughts, difficulty concentrating, non-verbals, unmanaged emotions, freeze, mind-reading, and difficulty forming sentences. Pt showed increased engagement during discussion about the four styles of communication. Progress seems hindered by pt continuing to engage in safety behaviors which reinforces intrusive anxious thoughts. Pt to continue IOP level of care to increase application of healthy coping skills, decrease safety behaviors, and prevent decompensation. Narrative Note: []
--- NOTE | 2020-03-28 11:20 | BH.SGPN.GN ---
Behaviors/Verbalizations/Mental Status: []Client alert and oriented, neatly dressed and groomed. Eye contact fair. Motor activity appropriate. Speech within normal limits. Affect unable to gather due to wearing a mask for COVID-19 protocol, mood anxious and dysthymic. Thoughts linear, logical, no signs of hallucinations or delusions. Client Response/Progress/Benefit: []Client responded well to session AEB client listening attentively to others and providing input at times during discussion. Engaged in activity and processing importance of being clear and specific when communicating with others. Client stepped out of his comfort zone by volunteering during the activity. Group worked together to identify strategies that helped them during the activity which included: asking for clarification, rephrasing, being clear, not giving up, and actively listening. Attentive during psychoeducation on D.E.A.R M.A.N, a strategy to improve communication, and selected two skills from this strategy to practice. Client stated he plans to work on expressing his emotions and having awareness of his emotions. Client seemed to benefit from increasing awareness of healthy strategies to improve communication. Client continues to struggle with consistent mood stability due to his self-report on gong engagement in compulsions. Will continue IOP tx to reinforce healthy coping skills and increase distress tolerance skills. Narrative Note: []
--- NOTE | 2020-03-30 09:05 | BH.SGPN.GN ---
Behaviors/Verbalizations/Mental Status: []Client alert and oriented, neatly dressed and groomed. Eye contact good. Motor activity appropriate. Speech within normal limits. Affect unable to gather due to wearing a mask for COVID-19 protocol, mood euthymic. Thoughts linear, logical, no signs of hallucinations or delusions. Reviewed client?s symptom tracker, no risk for suicidal ideation, plan, or intent as of 03/30/20. Client Response/Progress/Benefit: []Client responded well to session, attentive and optimistic today. Client reports feeling hopeful this morning. Client shared he has been having two good mood days in a row which has lifted client's mood, but at the same time client shares having some superstitious thinking that his good days will not last. Client stated this thinking has sabotaged his good moods in the past and client wants to break this cycle. Client reported he has been practicing acceptance, exercising, reducing safety behaviors, and using opposite action. Client appeared to benefit from reflecting on gains and application of coping skills. Will continue IOP tx to increase distress tolerance skills, improve mood stability, and further decrease intrusive thoughts. Narrative Note: []
--- NOTE | 2020-03-30 09:32 | BH.MDN_ITS ---
Multi-Disciplinary Note - Note 45-min Individual Time Started:: 11:48 Date: 03/30/20 Purpose of session/treatment goals addressed:: The purpose of this session was to address client's current symptoms, stressors, and application of coping skills. Another goal was to practice cognitive restructuring and review progress. Eye Contact:: Good Motor Activity:: Appropriate Appearance:: Neat Speech:: Appropriate Mood:: Euthymic, Anxious Affect:: Constricted Thoughts:: Linear, Logical, No evidence of hallucinations/delusions noted Staff Interventions:: Therapist used open-ended questions and active listening while providing a safe space for client to process and verbalize his emotions, symptoms, and stressors. Therapist used strengths perspective to help client practice self-empowerment for his use of coping skills. Therapist encouraged to use in the moment cognitive restructuring and distress tolerance skills. Therapist encouraged client to practice non-structured self-care for homework. Discussed discharge and aftercare. Client Response:: Client responded well to session, open to meeting with therapist. Client stated homework from last session went well. Client has also been able to cut back on his safety behaviors/compulsions. Client shared he went from researching three plus hours a day to two hours. Client stated I didn't think it would be that hard but it has been. Client hared he has also stopped listening to OCD books on tape in the car and listens to music instead. Client shared he continues to struggle with sitting with uncomfortable feelings and body sensations. Client stated the other day he was meditating, and he felt waves of anxiety. Client shared he was able to sit with this anxiety and redirect his thinking, but he ended up sitting with his anxiety for about an hour. Discussed the balance of using distress tolerance and practicing distractions when needed. Client recognizes that sometimes sitting with distress for too long only prolongs his anxiety. Client willing to reduce the amount of time he does meditation and take breaks if he feels like he is sitting with anxiety for too long. Client attempted to seek reassurance at times, but he responded well to therapist encouraging client to practice cognitive restructuring on his own. Client and therapist discussed discharge and aftercare. Client plans to continue with his outpatient therapist and would like to join aftercare at [facility]. Risks/Concerns:: Client denies any suicidal ideations, plan, or intent as of 03/30/20. Progress Toward Goals/Plan:: Client is making progress towards treatment goals AEB client? self-report of increased awareness and reduction of safety behaviors. Client went from researching for three plus hours a day to two. Client has also been engaging in more self-care. However, client continues to report unrealistic expectations for progress and all or nothing thinking that causes client to disqualify gains. Client endorses intrusive thoughts about worsening mental health symptoms, anxiety, and compulsions such as researching. Client to continue IOP tx to promote gains, further improve functioning, and increase self-care. Time Stopped:: 12:20
--- NOTE | 2020-03-30 11:47 | PCM.BH.PN_ITS ---
Progress Note Progress Note: History of Present Illness/Interim History: [] Patient is a 39-year-old male who is seen in follow-up at the [facility] behavioral health IOP program. I last saw the patient 1 week ago. Patient feels that he is doing much better overall this week. He denies having any depressed or down days in the past week. He still has an occasional fear of getting worse. His thoughts remain intrusive but they have not ruined his whole day lately. This is an improvement. His also feels he is getting better. He still has a lot of worry and some intrusive sieve thoughts that the worry will get worse but he definitely is improving slowly. His mood remains much less depressed than he was. He is also feels he is benefiting from the skills he is learning in the IOP program. He is working on not beating himself up as much over his intrusive thoughts and worries. He is exercising more which also helps with his stress. 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 There is still work stress due to COVID. He denies any passive thoughts, suicidal or homicidal ideation. Current Psychiatric Medications: [] Prozac 40 mg p.o. daily (x2 weeks now); Remeron 30 mg p.o. nightly (x7 weeks now). Patient is a 29-year-old male who is casually dressed and groomed with good hygiene Mental Status Examination: [] The patient is a 39-year-old male who is casually dressed and groomed with good hygiene. He is wearing a mask due to the pandemic. He has no psychomotor agitation or retardation. Eye contact is good and speech is normal rate and rhythm with no pressure. Mood is euthymic. Affect is full and normal. Thought process is goal-directed and organized. Thought content: No evidence of suicidal or homicidal ideation. No evidence of passive thoughts. No evidence of hallucinations or delusions. The patient continues to have evidence of some intrusive thoughts and worry about getting worse but these are less in quantity and severity. Judgment is intact. Impulsivity is low. Insight is improving. Diagnoses: [] [place]vue I: []Obsessive-compulsive disorder; major depressive disorder, recurrent, severe without psychosis; generalized anxiety disorder Bellevue II: [] Deferred Bellevue III: [] History of knee injury impacting ability to exercise Bellevue IV:[]] Primary support, work and health issues Plan: [] Patient will continue the IOP program as the support, structure, education, individual and group therapy will hopefully continue to benefit the patient and prevent worsening of his symptoms. He felt safe during the interview and if at any time he does not feel safe he will let us know or go to the emergency room. The risk, options, possible side effects and complications of the medications were discussed with the patient and he understands and accepts these. He is tolerating his medications well. No medication dosage changes were made today. I will see the patient in follow-up in 1 week. A prescription was sent in for Prozac 40 mg, 1 p.o. daily, #30 with 1 refill. He will continue to follow-up with his outpatient providers.
--- NOTE | 2020-04-01 10:20 | BH.SGPN.GN ---
Behaviors/Verbalizations/Mental Status: [] Client alert and oriented, casually dressed and appropriately groomed. Eye contact fair to good. Motor activity appropriate. Speech within normal limits. Affect congruent, mood anxious and dysthymic. Thoughts linear, logical, no signs of hallucinations or delusions. Client Response/Progress/Benefit: [] Pt was an engaged, provided input throughout discussion though mostly passive throughout discussion. Connected with the topic of obstacles and solutions and worked with group to identify common internal and external barriers that keep people stuck. Identified that he has struggled with turning external barriers into internal problems in the past. Group identified; self-doubt, negative thinking, unhealthy coping skills, poor boundaries, and lack of motivation as potential internal barriers that could prevent progress towards a better quality of life. Pt shared current reality as ?stuck in a hole before the mountain I need to climb? and that his anxiety is like a mountain goat mocking me. Noted feeling as though he can see where he needs to go but is struggling to get there. Pt's realistic, desired reality is to be out of the hole and riding the mountain goat up the mountain. Noted that he would like to get rid of his anxiety but knows it is more realistic to learn to accept it. Benefited from group as client was able to identify current mental health state and impact of internal barriers on progress. Progress noted in pt improved overall mood and willingness to engage. Will continue IOP tx to promote change behaviors, increase application of healthy coping skills for managing intrusive thoughts, as well as improve functioning. Narrative Note: []
--- NOTE | 2020-04-01 11:20 | BH.SGPN.GN ---
Behaviors/Verbalizations/Mental Status: []Client alert and oriented, neatly dressed and groomed. Eye contact good. Motor activity appropriate. Speech within normal limits. Affect unable to gather due to wearing a mask for COVID-19 protocol, mood anxious and slightly dysthymic. Thoughts linear, logical, no signs of hallucinations or delusions. Client Response/Progress/Benefit: []Client was an active participant in group discussion and attentive during the activity. Engaged during activity and provided ideas on how to cope with internal barriers that keep clients stuck from moving towards goals. Barriers identified by client were: intrusive thoughts, lack of communication of client?s needs, and catastrophizing. Group helped identify strategies to combat barriers identified by group members. Client left before creating a goal to overcome barriers. Benefited from group by identifying obstacles and solutions to desired reality. Progress noted in client?s increased self-awareness of barriers and generalization of coping skills. Will continue IOP tx to further reduce anxiety and depression while increasing confidence in coping skills. Narrative Note: []
--- NOTE | 2020-04-04 09:03 | BH.SGPN.GN ---
Behaviors/Verbalizations/Mental Status: []Client alert and oriented, casual dress. Eye contact fair to good. Motor activity appropriate. Speech within normal limits. Mood depressed, agitated. Affect constricted, though difficult to gather due to client wearing mask per [address] guidelines. Thoughts linear, logical, no signs of hallucinations or delusions. Reviewed client?s symptom tracker, no signs of suicidal ideation, plan, or intent as of today. Client Response/Progress/Benefit: []Client responded well to session, attentive and offering supportive statements. Client reports feeling anxious and fragile today. Client reported he is struggling today because he has had a strand of good days over the past few weeks, but he had a bad day yesterday. Client stated whenever he has a day of increased anxiety or sadness, he has thoughts that client will feel like that forever. Client receptive to discussion about combating distortions and practicing self-compassion. Client reported he has been using acceptance, meditation, hiking, and socializing to cope. Client reports he knows he has made progress, but because of his current mood, it is difficult to identify. Appeared to benefit from challenging negative thinking in the moment. Will continue IOP tx through this week to reinforce healthy coping skills, establish aftercare, and increase confidence in skill use. Narrative Note: []
--- NOTE | 2020-04-04 11:10 | BH.SGPN.GN ---
Behaviors/Verbalizations/Mental Status: []Client alert and oriented, casually dressed and appropriately groomed. Eye contact fair. Motor activity appropriate. Speech within normal limits. Affect could not be assessed due to pt wearing a mask as a requirement during COVID-19 pandemic. mood anxious. Thoughts linear, logical, no signs of hallucinations or delusions. Client Response/Progress/Benefit: []Client semi-engaged in session AEB client listening attentively to peers and providing input at times during discussion. Attentive during psychoeducation on 4 zones of regulation. Client able to identify feelings and behaviors for each zone. Group identified coping skills one can use to support self in each zone which included: opposite action, reach out to support, maintain routine, self-care, acceptance, and engaging in activities used to enjoy. Client stated belief that he most often is in the yellow zone which he recognizes can lead to the blue zone with feeling depressed. Benefited from increased education on zones of regulation or stages of alertness for emotions and healthy coping skills to use for each zone. Will continue IOP tx to further improve emotional regulation skills, reduce negative thinking, and prevent decompensation. Narrative Note: []
--- NOTE | 2020-04-04 12:10 | BH.MDN ---
Multi-Disciplinary Note - Note 45-min Individual Time Started:: 10:20 Date: 04/04/20 Purpose of session/treatment goals addressed:: The purpose of this session was to review client's progress and review strategies that will promote mood stability and gains made in IOP. Another goal was to discuss discharge recommendations and process any current stressors. Eye Contact:: Good Motor Activity:: Appropriate Appearance:: Neat Speech:: Rambling Mood:: Anxious, Dysthymic Affect:: Congruent - tearful Thoughts:: Circular, No evidence of hallucinations/delusions noted Staff Interventions:: Therapist used open-ended questions to explore client's thoughts on personal progress. Therapist also provided emotional support and helped client problem-solve current stressors. Therapist used thought challenging and distress tolerance skills to help client manage anxious thoughts. Therapist reviewed supports and coping skills with client to promote gains and prevent setbacks. Therapist discussed aftercare plan with client and discussed the benefits of ongoing use of daily coping skills. Therapist gave client a quote collage for closure. Client Response:: Client responded well to session, open to meeting with therapist. Client reported today he is in a not so great place today because he had a few rough moments this weekend. Client stated he has been doing better, but he still struggles with obsessively ruminating whenever client has down moments. Client reported these emotions have triggered frustration, sadness, and lack of acceptance about his physical limitations with his knee. Client receptive to gentle thought challenging from therapist. Client able to identify and reframe his thinking during session. Client able to recognize what he appreciates about his body and areas he has progressed since his knee surgery. Client able to identify coping skills he has that can help him when he ruminates. Coping skills included: acceptance, mindfulness, unstructured activities, exercise, and thought challenging when needed. Client struggled to identify progress because his low mood today, but he was eventually able to. Client self-identified progress in reduction in duration and intensity of depression and anxiety, improved acceptance, being more active, and reduction of safety behaviors. Client was encouraged to engage in something unstructured today that would allow client to connect with his daughter and be creative. Risks/Concerns:: Client denies any suicidal ideations, plan, or intent as of 04/04/10. Progress Toward Goals/Plan:: Client has responded well to treatment and has made progress while in IOP. Client self-reports an overall improved mood, reduced crying spells, application of mindfulness, and more positive days. Client reports increased ability to catch intrusive thoughts and dismiss them. Client has been working on reducing safety behaviors, or compulsions, to reduce OCD. Client still endorses daily anxiety and mild depression, but he has been more consistently reporting hope that he can cope with these symptoms. Will discharge from [facility] on Saturday04/08/20. Time Stopped:: 11:00
--- NOTE | 2020-04-06 10:05 | BH.SGPN.GN ---
Behaviors/Verbalizations/Mental Status: []Client alert and oriented, neatly dressed and groomed. Eye contact good. Motor activity appropriate. Speech within normal limits. Affect unable to gather due to wearing a mask for COVID-19 protocol, mood euthymic and anxious. Thoughts linear, logical, no signs of hallucinations or delusions. Client Response/Progress/Benefit: []Client active participant in group AEB client contributing thoughts and ideas throughout session and listening attentively to peers. Client connected with the quote and shared that taking action requires movement forward, but sometimes that can be confusing. Group worked together to identify barriers to taking action in their lives which included: habits, negative thinking, apathy, lack of motivation, and being stuck in the past. Group also identified that taking action is needed in order to improve mental health. Client identified areas client would like to take back control over in life to include: intrusive thoughts, self-judgement, uncomfortable body sensations, sense of urgency, and not being present. Client shared if he could take control over these things, he would ?have a peace of mind.? Benefited from awareness of personal areas client wants to improve and benefits to taking action towards mental wellness. Will continue IOP tx through the week to reinforce healthy coping skills and establish aftercare. Narrative Note: []
--- NOTE | 2020-04-06 10:46 | PCM.BH.PN_ITS ---
Progress Note Progress Note: History of Present Illness/Interim History: [] The patient is a 39-year-old male who is seen in follow-up at the [facility] behavioral health IOP program. I last saw the patient 1 week ago. The patient states that he is still having bad days good days. He had some depression over the weekend heat which he feels is due to the fact that his is not dealing well with his illness. He states however that yesterday and today he feels much better. He still declines when he evaluates how he is doing and judges it to be poor and then ruminates on his fear of getting worse. Long discussion was had with the patient that he really needs to work on not evaluating his feelings all day long and just letting them be and use the skills he learns in groups. He understands that if he ruminates negatively him beats himself up in his head then it will take longer for him to make progress. He states that today he feels very hopeful and feels the program is benefiting him. Work is going okay and he is working mostly from home now. He denies any suicidal, homicidal, thoughts of or other. Current Psychiatric Medications: [] Prozac 40 mg daily (x3 weeks now); Remeron 30 mg p.o. nightly (x8 weeks now). Mental Status Examination: [] Patient is a 39-year-old male who is seen wearing a mask due to the pandemic. He is casually dressed and groomed with good hygiene. He has no psychomotor agitation or retardation. His eye contact is good. His speech is normal rate and rhythm and fluent with no pressure. His mood is euthymic today. Affect is full and normal. Thought process is goal-directed and organized. Thought content: No evidence of suicidal or homicidal ideation. No evidence of hallucinations or delusions. Judgment is intact. Insight: Some present. Impulsivity: Low. Diagnoses: [] [place] I: [] OCD; major depressive disorder, recurrent, severe without psychosis; generalized anxiety disorder [place] II: [] Deferred [place] III: [] History of knee injury impacting ability to exercise [place] IV:[]] Primary support, work and health issues Plan: [] Patient will continue the IOP program for the rest of this week as the support, structure, education, individual and group therapy will hopefully continue to benefit the patient and prevent worsening of his symptoms. He felt safe during the interview and if at any other time he does not feel safe he will let us know or go to the emergency room. The risks, options, and possible complications of the medication were discussed with the patient and he understands and accepts these. He will continue his current doses of medication. He will continue to follow-up with his psychiatric provider as scheduled and his medical providers. Patient will be discharged soon if his progress is maintained.
--- NOTE | 2020-04-07 11:05 | BH.SGPN.GN ---
Behaviors/Verbalizations/Mental Status: []Client alert and oriented, casual dress, hygiene tended to. Eye contact fair. Motor activity appropriate. Speech within normal limits. Affect could not be assessed due to pt wearing a mask due to COVID-19 pandemic requirements. mood anxious. Thoughts linear, logical, no signs of hallucinations or delusions. Client Response/Progress/Benefit: []Pt active participant AEB pt listening attentively to peers, providing input throughout session and completing worksheet. Pt benefitted from listening as group reflected upon the mental health benefits of taking small actionable steps towards addressing barriers and promoting healthy change in daily life. Pt did well to work with the group on completing the example Change Action Plan and applying the skills learned to pt own Action Plan. Pt identified wanting to decrease self-judgement. Pt shared he would begin by accepting 3-5 judgements he notices he is making about himself and recognize but not accept the judgements. Pt stated additional goal will be to focus on becoming aware of the present moment. Pt recognized his anxiety often results in him worrying about the future and doesn't often enjoy the present moment. Pt progress noted in ability to identify concrete and realistic steps to addressing barriers to actionable change identified. Recommended continued IOP tx to continue use of healthy skills, continue practicing acceptance skills and prevent decompensation. Narrative Note: []
--- NOTE | 2020-04-08 07:53 | BH.AFTERPLAN ---
Aftercare Plan - Demographics Treatment End Date:: 04/08/20 Psychiatrist:: Miranda Shah Psychiatrist Office #:: [phone] [facility] Therapist:: Debbie Acevedo Therapist Phone #:: [phone] - Medications Home Medications: Home Medications Mirtazapine [Remeron] 30 mg PO QHS 30 Days #30 tab 03/16/20 Fluoxetine [Prozac] 40 mg PO DAILY 30 Days #30 cap 03/30/20 - Plan Details Progress/Aftercare Plan Details:: Flo has shown great strides and progress since admission to [facility]. When Flo started [facility] he was experiencing significant anxiety, panic attacks, depressive symptoms and hopelessness, crying spells, inability to concentrate, intrusive thoughts, and feelings of dread on a daily basis. Flo was having a very difficult time connecting and getting out of his own head. Now, Flo can more easily catch and challenge distortions that reinforced anxiety and depression, use healthy coping skills to manage intrusive thoughts, and he has been getting back into positive activities. Flo has been reducing safety behaviors that reinforce OCD and sitting with the uncomfortable. Flo self-reports progress in reduced safety behaviors, more acceptance, increased use of healthy coping skills, less resistance to emotions, and more hope. Flo was active in both group and individual therapy sessions. Flo contributed to group discussions, offered emotional support to peers, and took notes. In individual sessions, Flo was receptive to feedback, consistent with homework, and willing to sit with uncomfortable emotions. Flo?s DSM-5 scores decreased overall by 20% since admission. Depression decreased by 20%, and OCD decreased by33%. Flo has awareness that progress is not linear, and that changing his thinking will continue to be a process. Flo will continue outpatient counseling and he has reached out to [facility] for medication management. Strategies for Success:: 1.Opposite action! Continue to break those unhealthy maintenance cycles by changing behavior. This could look like getting active, not engaging in safety behaviors, etc. Remember changing our behaviors changes our mood. 2. Thought challenging when appropriate! Remember to challenge distortions and reframe your thinking! Some distortions to be aware of include emotional reasoning, all or nothing thinking, mental filtering, and catastrophizing. 3. self-care! You deserve to take breaks, not be perfect, give yourself credit, meditate, etc. 4. Acceptance! When your intrusive thoughts occur, remember they are just that? Thoughts! Let them come and go without giving them value. 5. Practice self-compassion. Ask yourself if your expectations are truly realistic and be kind to yourself. 6. Limit safety behaviors! Continue to cut back on those behaviors that provide short term relief, but overtime feed into anxiety. 7. Practice gratitude 8. Practice positive self-talk and keep track of your strengths. 9. Remember progress isn?t linear! You may have a setback or bump in the road, but that doesn?t mean you?ve lost all progress. 10. Remember it?s just a bad moment, not a bad day. - Appointments Appointments/Referrals to Other Services:: 1. Follow up with Otto every Saturday for outpatient counseling. 2. [facility] for pscyhiatry. Call IOP if you need a medication refill before you can get scheduled. 3. IOP aftercare starting on 04/14/20 from 2:00-3:30pm.
--- NOTE | 2020-04-08 09:05 | BH.SGPN.GN ---
Behaviors/Verbalizations/Mental Status: [] Eye contact is good. Motor activity is appropriate. Appearance is casual. Speech is Appropriate. Mood is anxious. Affect is congruent. Thoughts are linear and logical. No evidence of psychosis. Reviewed daily check in sheet and no reports of suicidal ideations or intent. Client Response/Progress/Benefit: [] Pt spoke when prompted. Emotion for today is anxious. Shared that today is his last day in IOP. Discussed the ups and downs of IOP treatment. Notes that the beginning of the week tends to be better. Increase anxiety and ruminations towards that weekend which he believes is due to increased downtime and feeling unproductive. Continues to have worries that things will go south. Despite distress he does continue to put effort towards his mental health. [place] that IOP was beneficial and that he learned more skills. Also felt that support was very helpful. Progress noted. Will discharge from IOP today. Narrative Note: []
--- NOTE | 2020-04-08 10:14 | BH.SGPN.GN ---
Behaviors/Verbalizations/Mental Status: []Client alert and oriented, neatly dressed and groomed. Eye contact good. Motor activity appropriate. Speech within normal limits. Affect unable to gather due to wearing a mask for COVID-19 protocol, mood anxious. Thoughts linear, logical, no signs of hallucinations or delusions. Client Response/Progress/Benefit: []Client responded well to session, attentive and contributing at times. Client connected with the topic of relationships and shared relationships ?enrich our lives, but they can also cause strain.? Client helped group discuss the benefits of relationships as well as the different types of relationships one can have. Group identified the risk factors for unhealthy relationships which included: substance abuse, low self-esteem, childhood trauma, cycle of abuse, and negative core beliefs. Client helped group develop a list of the consequences that unhealthy relationships have on mental health. These included: poor boundaries, increased depression and anxiety, and negative self-talk. Client shared he has worried about how his mental health symptoms impact his relationship with his . Appeared to benefit from increasing awareness of the impact unhealthy relationships can have on mental health. Progress noted AEB client?s report of reduce compulsive behaviors and increased ability to manage anxiety. Will discharge from IOP today as client has made progress towards his goals and no longer meets criteria for IOP level of care. Narrative Note: []
--- NOTE | 2020-04-08 11:13 | BH.SGPN.GN ---
Behaviors/Verbalizations/Mental Status: [] Client alert and orient. Appearance casual and appropriately groomed. Speech an appropriate rate and tone, quiet. Motor activity WNL. Mood euthymic and anxious, affect unable to determine as client wearing mask per COVID-19 protocol. No evidence of delusion or hallucinations.? Client Response/Progress/Benefit: []Client receptive of group, engaged during activity which challenged the group to identify heathy vs. unhealthy behaviors and characteristics of relationships. Expressed agreement that identifying the health of a relationship is more difficult outside treatment environment. Noted that poor communication can lead to a healthy relationship becoming unhealthy. Client worked with the group to brainstorm potential strategies for improving own ability to identify whether a relationship is healthy. Strategies for improving insight included: determine if your values align or if you feel you must compromise your own personal values, ask yourself ?is there mutual respect and understanding in the relationship??, take notice of if boundaries are respected, reflect on whether you are supportive of one another during difficult times, and ask yourself ?How do I feel when I am around this person??. Client identified plans to increase his ability to be more open with his emotions in current relationships to improve healthy of the relationship. Client appeared to benefit from increasing awareness of healthy vs. unhealthy relationships. Progress noted in client reports of improved mood, reduced OCD symptoms, and increased personal acceptance. Client to discharge from [facility] tx given progress made and is encouraged to continue with outpatient counseling to continue to promote gains, further improve symptom management, and promote maintenance. Narrative Note: []
--- NOTE | 2020-04-08 15:01 | BH.DS ---
Discharge Summary - Demographics Date of Admission:: 02/17/20 Discharge Date: 04/08/20 Presenting Problems at Admission:: Client is a 39-year-old male with a history of MARK and MDD. Client was referred to [facility] by his outpatient therapist due to worsening depression, intrusive thoughts, health anxiety, and recent stressors impacting mental wellbeing. Client reported his symptoms were significantly impacting his social, familial and work responsibilities. At admission, client endorsed a depressed mood with lack of motivation, crying spells, anhedonia, feelings of worthlessness, feeling of being a burden, and inability to concentrate. Client shared his depression and intrusive thoughts were consuming my life. Client's intrusive thoughts are centered around his health, worries about becoming suicidal, and existential thoughts. At admission, client was engaging in compulsive checking behaviors or researching about OCD for more than three hours a day. Client reported inability to focus at work and stated it was hard for him to even enjoy playing with his daughter. Client also endorsed ruminations, reassurance seeking behaviors, and panic attacks. Discharge Diagnoses:: Major depressive disorder recurrent severe without psychosis F33.2; obsessive-compulsive disorder (obsessions only) F42.2; generalized anxiety disorder Reason for Discharge:: Client has made progress towards his treatment goals AEB his reduction in DSM-5 symptom scores, self-report of increased ability to manage symptoms, and improved functioning at home and work. Client no longer meets criteria for [facility] level of care and will transition to outpatient counseling and [facility] aftercare. - Treatment Progress During Treatment & Response: Client has shown positive strides and progress since admission to [facility]. When client started [facility] he was experiencing significant anxiety, panic attacks, depressive symptoms and hopelessness, crying spells, inability to concentrate, intrusive thoughts, and feelings of dread on a daily basis. Client was having a very difficult time connecting and getting out of his own head. At discharge, client reported he could more easily catch and challenge distortions that reinforced anxiety and depression, use healthy coping skills to manage intrusive thoughts, and being more active. Client also reduced compulsions or safety behaviors that reinforced OCD. Client went from researching OCD for over three hours a day to less than two hours. Client self-reports progress in reduced safety behaviors, more acceptance, increased use of healthy coping skills, less resistance to emotions, and more hope. Client was active in both group and individual therapy sessions. Client contributed to group discussions, offered emotional support to peers, and took notes. In individual sessions, client was receptive to feedback, consistent with homework, and willing to sit with uncomfortable emotions. Client did struggle with setting realistic expectations for himself and often expressed a desire to get better quickly. Client?s DSM-5 scores decreased overall by 20% since admission. Depression decreased by 20%, and OCD decreased by33%. Issues Still to be Addressed:: At discharge, client continued to have difficulty with challenging unrealistic expectations for self which reinforces perfectionism. Client can benefit from ongoing therapy to reinforce healthy coping skills, accept intrusive thoughts, increase distress tolerance, and improve self-compassion. Discharge Recommendations/Instructions:: Client is recommended to follow up with his outpatient therapist, Otto López, who client sees on a weekly basis. Client?s next appointment is 04/12/20. Client reported he and Otto will be changing client?s treatment to solely focus on managing OCD. Client is also recommended to follow up with [facility] for medication management. Client has filled out the new client paperwork and is waiting for a call from [facility]. Lastly, client will be participating in [facility] aftercare which starts for client on 04/14/20 and is once a week for 12 weeks. Discharge Handout: Complete Discharge Handout with client on aftercare options and continuity of care.
== END 2020-04-08 14:00 | disposition home or self-care (01) ==
LOC: BHIOP 09:00
PROVIDERS: PCP Internal Medicine; Referring Provider Psychiatry & Neurology Psychiatry; Visit Provider Psychiatry & Neurology Psychiatry
DX: F33.2 Major depressive disorder, recurrent severe without psychotic features (principal); F42.2 Mixed obsessional thoughts and acts; F41.1 Generalized anxiety disorder
CPT/HCPCS: H0035; 90834; 90853

== ENCOUNTER 2020-04-21 14:00 | Outpatient (RCR) | payer OTHER, SELFPAY ==
[2020-03-11 15:27] VITALS: BMI 25.0
--- NOTE | 2020-04-21 16:31 | BH.MTP ---
Master Treatment Plan - Patient Information Program Physician:: Dr. Miranda Shah Primary Therapist:: Debbie Acevedo - Psychiatric Diagnoses Psychiatric Diagnoses:: Major depressive disorder recurrent severe without psychosis F33.2; obsessive-compulsive disorder (obsessions only) F42.2; generalized anxiety disorder Diagnosis Code(s):: F 33.2; F 42.2 - Estimated LOS Estimated LOS (in weeks):: 12 Problem/Goal #1 - Problem/Goal #1 Stated Goal:: client will maintain or see a reduction in symptoms AEB client score on the DSM 5 cross-cutting measure and improve client's daily functioning. - Objectives Objective #1 Stated Objective: Client will continue to consistently apply healthy coping skills to maintain progress made in IOP tx. Interventions: Through group therapy, client will review warning signs and triggers as well as healthy coping skills learned in IOP tx to successfully maintain gains while transitioning into outpatient therapy. Discharge Criteria: Client will have accomplished this goal when client's score on the DSM-5 cross-cutting measure has either maintained or reduced over a 12 week period. Target Date: 07/14/20 Review Date: 05/19/20 Status: open Objective #2 Stated Objective: Client will learn and utilize 2-3 maintenance strategies to prevent decompensation. Interventions: Through group therapy, client will be provided with education on healthy maintenance behaviors, relapse prevention techniques, and healthy coping strategies. Discharge Criteria: Client will have accomplised this goal when can report using at least 2 maintenance skills to prevent decompensation. Target Date: 07/14/20 Review Date: 05/19/20 Status: open
== END 2020-04-25 23:59 ==
LOC: BHOG 14:00
PROVIDERS: PCP Internal Medicine; Referring Provider Psychiatry & Neurology Psychiatry; Visit Provider Psychiatry & Neurology Psychiatry
DX: F33.2 Major depressive disorder, recurrent severe without psychotic features (principal); F42.2 Mixed obsessional thoughts and acts; F41.8 Other specified anxiety disorders
CPT/HCPCS: 90853

== ENCOUNTER 2020-05-05 14:00 | Outpatient (RCR) | payer OTHER, SELFPAY ==
[2020-04-22 10:07] VITALS: BMI 25.0
--- NOTE | 2020-05-05 14:05 | BH.SGPN.GN ---
Addendum entered and electronically signed by Aziza Linton LSW 05/09/20 14:20: Addendum to add missing MSE: Eye contact is good. Motor activity is appropriate. Appearance is neat and casual. Speech is Appropriate. Mood is anxious, dysthymic. Affect unable to assess as client wearing a mask per COVID-19 protocol. Thoughts are linear and logical. No evidence of psychosis. Original Note: Behaviors/Verbalizations/Mental Status: [] Client Response/Progress/Benefit: [] Client responded well to session, checked in using his GAPs worksheet. Client identified making progress on goal of more actively saying a daily mantra and practice allowing himself to enjoy ?being in the moment?. Noted he has been able to begin looking forward to the time he has set aside for meditation. Identified recent coping skills used as: thought challenging, grounding via daily meditation, and reaching out to outside supports more regularly. Client shared a stressor today is struggling with repressed anger that has resurfaced following the of his father. Indicated he is struggling with guilt about being shorter with his as a result but has taken the initiative to schedule with his outpatient therapist to begin working on this. Client engaged well during the discussion of self-compassion. Noted connecting with the benefits of self-compassion and shared that for him it is much easier to be compassionate towards others than himself and attributes this to using self-criticism as a means of motivating himself in the past. Client appeared to benefit from psychoeducation on the three elements of self-compassion and debunking common myths about what self-compassion is. Client engaged during discussion brainstorming various strategies to improve use of self-compassion. Identified wanting to use more self-compassionate affirmations when approaching his anger as well as reminding himself ?all humans suffer, it?s not just me? when struggling with self-depression for making mistakes. Narrative Note: []
--- NOTE | 2020-05-19 13:34 | BH.TPR ---
Treatment Plan Review Date of Admission:: 04/21/20 Date of Treatment Plan Review:: 05/19/20 Admitting Diagnoses:: Major depressive disorder recurrent severe without psychosis F33.2; obsessive-compulsive disorder (obsessions only) F42.2; generalized anxiety disorder Current Diagnoses:: Major depressive disorder recurrent severe without psychosis F33.2; obsessive-compulsive disorder (obsessions only) F42.2; generalized anxiety disorder Patient's Response to Treatment:: Client is engaged in IOP aftercare as evidenced by client's participation in group discussions, self-report of consistently applying coping skills, and reduction DSM-5. Client has reported some ups and downs with managing depression and anxiety while in aftercare, but client has been implementing healthy coping skills on a consistent basis. Status of Current Problems and Symptoms: Client continues to struggle with intrusive thoughts about his mental health, physical health, and overall happiness. Client's DSM-5 scores for anxiety, depression, and OCD are currently in the mild range for severity. Client reports ongoing issues with acceptance as well as black and white thinking about himself. Problem #1 Problem Name:: Pt. will maintain or see a reduction in sx AEB client score on the DSM-5 Status of Goals:: Objective 1- complete with ongoing work encouraged. Client?s scores on the DSM-5 for depression have maintained since discharge from IOP. Client?s anxiety scores have decreased by 16% since admission to aftercare and his OCD DSM-5 scores have maintained since discharge from IOP. Overall, client?s DSM-5 scores have decreased by 14%. Objective 2- complete with ongoing work encouraged. Client has been consistently reporting use of mindfulness through meditation, hiking, and playing music, exercising, acceptance, and spending time with supports. Team Recommendations:: Recommended client continue IOP aftercare group in addition to attending regular outpatient counseling in order to maintain gains as well as reinforce healthy coping skills.
--- NOTE | 2020-05-19 14:00 | BH.SGPN.GN ---
Behaviors/Verbalizations/Mental Status: []Client alert and oriented, neatly dressed and groomed. Eye contact good. Motor activity appropriate. Speech within normal limits. Affect congruent, mood dysthymic and anxious. Thoughts linear, logical, no signs of hallucinations or delusions. Client Response/Progress/Benefit: []Client responded well to session, engaged throughout. Client reviewed his GAPs and shared current stressors which included feeling more depressed last week which was discouraging. Client reports in the past week he has been using meditation, sitting with the uncomfortable, hiking, playing guitar, and acceptance. Client participated in the group discussion of maintenance and the benefits of creating a maintenance plan. Client contributed as the group discussed what components make up a maintenance plan. Client created his own maintenance plan for depression and intrusive thinking. Client identified warning signs which included uncontrollable intrusive thoughts, avoidance, negative thoughts about progress, and using safety behaviors. Client's coping skills included: meditation, acceptance, positive self-talk, and self-care activities. Appeared to benefit from creating a maintenance plan to promote gains and prevent setbacks. Will continue aftercare next week. Narrative Note: []
== END 2020-05-25 23:59 ==
LOC: BHOG 14:00
PROVIDERS: PCP Internal Medicine; Referring Provider Psychiatry & Neurology Psychiatry; Visit Provider Psychiatry & Neurology Psychiatry
DX: F33.2 Major depressive disorder, recurrent severe without psychotic features (principal); F42.2 Mixed obsessional thoughts and acts; F41.1 Generalized anxiety disorder
CPT/HCPCS: 90853

== ENCOUNTER 2020-06-02 14:00 | Outpatient (RCR) | payer OTHER, SELFPAY ==
[2020-04-22 10:07] VITALS: BMI 25.0
--- NOTE | 2020-06-09 14:00 | BH.SGPN.GN ---
Behaviors/Verbalizations/Mental Status: []Client alert and oriented, neatly dressed and groomed. Eye contact fair. Motor activity appropriate. Speech within normal limits. Affect unable to gather due to wearing a mask for COVID-19 protocol, mood anxious and frustrated. Thoughts linear, logical, no signs of hallucinations or delusions. Client Response/Progress/Benefit: []Client responded well to session, actively contributing. Client stated overall the past week was good, but client currently feels anxious. Client reported he had several good days in a row, but today client is struggling with anxiety which frustrates client. Client shared ?it?s confusing and discouraging? and was receptive to group support and feedback. Client has been using painting, acceptance, and meditation to cope with symptoms and stressors this week. Client contributed to the discussion on gratitude and its benefits. Client attentive during discussion of internal vs. external gratitude. Client receptive to participating in the group seven-day gratitude challenge. Client selected one gratitude reflection per day and stated he will implement this verbally. Receptive to discussion on intentionality and self-accountability. Client shared he will hold himself accountable by pairing the goal with making coffee in the morning. Appeared to benefit from connecting with peers and practicing gratitude. Will continue IOP aftercare to promote mood stability and use of healthy coping skills. Narrative Note: []
--- NOTE | 2020-06-23 14:42 | BH.DS_ITS ---
Discharge Summary - Demographics Date of Admission:: 04/21/20 Discharge Date: 06/23/20 Presenting Problems at Admission:: Client discharged from [facility] tx and transitioned to IOP aftercare to maintain gains client made in IOP, further improve mood stability, and to reinforce healthy coping skills to manage OCD and anxiety. At admission to IOP aftercare, client reported continuing to experience intrusive thinking, ruminations, and moderate depression and anxiety. Client was also still using safety behaviors, but of a reduced duration. Despite these symptoms, client reported an increased ability to catch and challenge distortions and accept intrusive thoughts. Discharge Diagnoses:: Major depressive disorder recurrent severe without psychosis F33.2; obsessive-compulsive disorder (obsessions only) F42.2; generalized anxiety disorder Reason for Discharge:: Client voluntarily discharged from IOP aftercare as client felt he received the full benefit of aftercare. Client will transition to traditional outpatient counseling. - Treatment Progress During Treatment & Response: Client demonstrated variable progress in IOP aftercare as client often reported a lot of ?ups and downs.? Client reported experiencing more positive days than he did in IOP, but he still struggled at times with consistent mood stability. Client stated his intrusive thinking and unrealistic expectations for himself made it challenge for client to ?fully be present.? Client demonstrated progress in increased acceptance of intrusive thinking, using mindfulness, and reducing safety behaviors. Client also returned to being more physically active and getting back into his old hobbies. Client did not complete the DSM-5 due to having an unexpected discharge. Client was attentive during IOP aftercare and was receptive to feedback and support from peers. Will discharge and continue with traditional outpatient counseling. Issues Still to be Addressed:: Throughout his time in IOP aftercare, client continued to express difficulty with challenging unrealistic expectations for self/moods which reinforced perfectionism and ruminations. Client can benefit from ongoing therapy to reinforce healthy coping skills, accept intrusive thoughts, reduce avoidance behaviors, and improve self-compassion. Discharge Recommendations/Instructions:: Client is recommended to follow up with his outpatient therapist, Otto López, who client sees on a weekly basis. Client is also encouraged to follow up with [facility] for psychiatric services. Discharge Handout: Complete Discharge Handout with client on aftercare options and continuity of care.
== END 2020-06-16 14:00 | disposition home or self-care (01) ==
LOC: BHOG 14:00
PROVIDERS: PCP Internal Medicine; Referring Provider Psychiatry & Neurology Psychiatry; Visit Provider Psychiatry & Neurology Psychiatry
DX: F33.2 Major depressive disorder, recurrent severe without psychotic features (principal); F42.2 Mixed obsessional thoughts and acts; F41.1 Generalized anxiety disorder
CPT/HCPCS: 90853

== ENCOUNTER → 2020-09-23 15:38 | Outpatient (CLI) | payer OTHER, SELFPAY ==
[2020-09-23 15:18] VITALS: BMI 27.9
[2020-09-23 16:43] LABS: Absolute Lymphocyte Count 1.69 X10^3/uL (0.83-4.51); Absolute Neutrophil Count 3.7 X10^3/uL (2.0-7.7); Basophil# 0.02 X10^3/uL; Basophil% 0.3 % (0-1); Eosinophil# 0.04 X10^3/uL; Eosinophils% 0.7 % (0-5); Hematocrit 43.4 % (40-54); Hemoglobin 14.4 g/dL (13.0-16.5); Lymphocyte # 1.69 X10^3/ul (4.0); Lymphocyte % 28.2 % (19-41); Mean Corp Hgb Conc 33.2 g/dL (32-36); Mean Corpuscular Hgb 30.4 pg (27.0-32.0); Mean Corpuscular Volume 91.8 fL (80-94); Mean Platelet Vol. 10.1 fl (6.2-12.0); Monocyte% 8.3 % (0-10); NRBC Flagged by Analyzer 0 % (0-5); Neutrophil # 3.71 X10^3/uL (2.7-7.7); Platelet Count 203 K/mm3 (150-450); RBC Distribution Width SD 40.8 fl (35.1-43.9); Red Blood Count 4.73 M/mm3 (4.6-6.2)
[2020-09-23 16:56] LABS: ALB/GLOB Ratio 1.4 RATIO (0.9-2.4); AST(SGOT) 32 U/L (15-37); Alanine Aminotransfer ALT/SGPT 67 U/L (16-61); Albumin, Serum 4.2 g/dL (3.2-5.0); Alkaline Phosphatase 63 U/L (45-117); Anion Gap 5 (5-15); BUN 19 mg/dL (7-18); BUN/Creat Ratio 15.1 RATIO (10-20); Calcium,Total 8.8 mg/dL (8.5-10.1); Chloride 104 mmol/L (98-107); Cholesterol 242 mg/dL (200); Creatinine, Serum 1.26 mg/dL (0.70-1.30); EST Glomerular Filtration Rate 67 mL/min (>60); Est Glom Filt Rate - Afr Amer 81 mL/min (>60); Globulin 2.9 g/dL (2.2-4.2); Glucose 92 mg/dL (74-106); High Density Lipoprotein 46 mg/dL; Potassium 4.2 mmol/L (3.5-5.1); Protein, Total 7.1 g/dL (6.4-8.2); Sodium Level 138 mmol/L (136-145); Triglycerides 112 mg/dL; Very Low Density Lipoprotein 22 mg/dL (5-40)
== END ==
PROVIDERS: PCP Internal Medicine; Referring Provider Internal Medicine; Visit Provider Internal Medicine
DX: F41.9 Anxiety disorder, unspecified (principal); F32.9 Major depressive disorder, single episode, unspecified; I10 Essential (primary) hypertension
CPT/HCPCS: 36415; 80053; 80061; 85025

== ENCOUNTER → 2023-07-08 | Outpatient (CLI) | payer OTHER, SELFPAY ==
[2023-07-08 15:30] LABS: Absolute Lymphocyte Count 1.61 X10^3/uL (0.83-4.51); Absolute Neutrophil Count 3.3 X10^3/uL (2.0-7.7); Basophil# 0.02 X10^3/uL; Basophil% 0.4 % (0-1); Eosinophil# 0.05 X10^3/uL; Eosinophils% 0.9 % (0-5); Hematocrit 43.3 % (40-54); Hemoglobin 14.6 g/dL (13.0-16.5); Lymphocyte # 1.61 X10^3/ul (0.83-4.51); Lymphocyte % 30.2 % (19-41); Mean Corp Hgb Conc 33.7 g/dL (32-36); Mean Corpuscular Hgb 30.9 pg (27.0-32.0); Mean Corpuscular Volume 91.7 fL (80-94); Mean Platelet Vol. 10.6 fl (6.2-12.0); Monocyte# 0.34 X10^3/uL; Monocyte% 6.4 % (0-10); NRBC Flagged by Analyzer 0 % (0-5); Neutrophil % 61.9 % (47-70); Platelet Count 211 K/mm3 (150-450); RBC Distribution Width CV 12.5 % (11.6-14.6); RBC Distribution Width SD 42.2 fl (35.1-43.9); Red Blood Count 4.72 M/mm3 (4.6-6.2); White Blood Count 5.3 K/mm3 (4.4-11.0)
[2023-07-08 15:44] LABS: ALB/GLOB Ratio 1.4 RATIO (0.9-2.4); AST(SGOT) 27 U/L (15-37); Alanine Aminotransfer ALT/SGPT 40 U/L (16-61); Albumin, Serum 4.3 g/dL (3.2-5.0); Alkaline Phosphatase 50 U/L (45-117); Anion Gap 4 (5-15); BUN 15 mg/dL (7-18); BUN/Creat Ratio 11.5 RATIO (10-20); Calcium,Total 9.5 mg/dL (8.5-10.1); Chloride 106 mmol/L (98-107); Cholesterol 202 mg/dL (200); EST Glomerular Filtration Rate 64 mL/min (>60); Est Glom Filt Rate - Afr Amer 77 mL/min (>60); Glucose 104 mg/dL (74-106); High Density Lipoprotein 55 mg/dL; Potassium 5.1 mmol/L (3.5-5.1); Protein, Total 7.3 g/dL (6.4-8.2); Sodium Level 141 mmol/L (136-145); Triglycerides 84 mg/dL; Very Low Density Lipoprotein 17 mg/dL (5-40)
== END | disposition home or self-care (01) ==
LOC: BIMLAB 13:34
PROVIDERS: PCP Internal Medicine; Referring Provider Internal Medicine; Visit Provider Internal Medicine
DX: Z00.00 Encounter for general adult medical examination without abnormal findings (principal)
CPT/HCPCS: 36415; 80053; 80061; 85025